=== PATIENT | female | born 1945 | race Asian ===

== ENCOUNTER 2017-06-26 09:34 | Outpatient (CLI) | payer MEDICARE, OTHER ==
[~2017-06-26] VITALS: Ht 152.4 cm; Wt 60.0 kg
[~2017-06-26 09:34] MED LIST: CALCIUM 500500 M1 PO; CENTRUM1 TA1 PO; K-DUR20 MEQ PO; LEVOXYL0.1 MG PO; VITAMIN C500 MG PO; ZYRTEC 10MG10 MG PO
[2017-06-26 09:54] VITALS: BP 186/82; PULSE 62; TEMP 97.7
[2017-06-26 12:20] VITALS: BP 123/76; PULSE 76
[2017-06-26 12:37] VITALS: BP 123/70; PULSE 60; TEMP 98.3
[2017-06-26 13:55] VITALS: BP 114/65; PULSE 65; TEMP 97.6
[2017-06-26 14:40] VITALS: BP 152/94; PULSE 79
[2017-06-26 14:47] VITALS: BP 155/96; PULSE 82
[2017-06-28] MEDS ORDERED: LEVAQUIN 5500 MG/TA1 PO (07:48)
[2017-06-28] MEDS ORDERED: PROTONIX 40MG T40 MG PO (07:48)
[2017-06-28] MEDS ORDERED: ATIVAN 0.50.5 MG/TAB PO (11:50)
== END 2017-06-26 15:05 | disposition home or self-care (01) ==
LOC: EUO 09:34
DX: N39.0 Urinary tract infection, site not specified (principal)
CPT/HCPCS: J1956; J2405

== ENCOUNTER → 2017-07-01 | Outpatient (CLI) | payer MEDICARE, OTHER ==
[~2017-07-01] MED LIST changes: +ATIVAN 0.50.5 MG/TAB PO; +LEVAQUIN 5500 MG/TA1 PO; +PROTONIX 40MG T40 MG PO
== END ==
LOC: COL.RAD 14:53
DX: R51 Headache (principal); R53.1 Weakness

== ENCOUNTER → 2017-08-22 | Outpatient (CLI) | payer MEDICARE, OTHER | LOC: MC.RAD 11:20 | DX: Z12.31 Encounter for screening mammogram for malignant neoplasm of breast (principal); N63.10 Unspecified lump in the right breast, unspecified quadrant ==

== ENCOUNTER → 2017-08-26 | Outpatient (CLI) | payer MEDICARE, OTHER | LOC: MC.RAD 13:24 | DX: N63.10 Unspecified lump in the right breast, unspecified quadrant (principal) ==

== ENCOUNTER → 2017-12-31 | Outpatient (CLI) | payer MEDICARE, OTHER | LOC: COL.RAD 12:13 | DX: D13.4 Benign neoplasm of liver (principal); K76.89 Other specified diseases of liver ==

== ENCOUNTER → 2017-12-31 | Outpatient (CLI) | payer MEDICARE, OTHER | LOC: COL.RAD 07:49 | DX: Z53.8 Procedure and treatment not carried out for other reasons (principal); D13.4 Benign neoplasm of liver ==

== ENCOUNTER → 2018-08-28 | Outpatient (CLI) | payer MEDICARE, OTHER | LOC: COL.RAD 10:50 | DX: K76.89 Other specified diseases of liver (principal); K76.0 Fatty (change of) liver, not elsewhere classified; E27.8 Other specified disorders of adrenal gland; N28.1 Cyst of kidney, acquired; Z90.710 Acquired absence of both cervix and uterus; Z90.49 Acquired absence of other specified parts of digestive tract ==

== ENCOUNTER 2019-07-21 15:34 | Emergency (ER) | payer MEDICARE, OTHER ==
[~2019-07-21] VITALS: Ht 149.9 cm; Wt 60.9 kg
[2019-07-21] MEDS ORDERED: OMNICEF 300MG300 MG PO (17:41)
[2019-07-21] MEDS ORDERED: NORCO 325 MG-51 TAB PO (17:42)
[2019-07-21 20:45] VITALS: BP 122/72; PULSE 80; TEMP 97
== END 2019-07-21 20:50 | disposition home or self-care (01) ==
LOC: COL.ER 15:34
DX: H66.91 Otitis media, unspecified, right ear (principal); Z88.0 Allergy status to penicillin
CPT/HCPCS: J1200; J1630; J2270; J2550

== ENCOUNTER → 2019-08-05 | Outpatient (CLI) | payer MEDICARE, OTHER ==
[~2019-08-05] MED LIST changes: +NORCO 325 MG-51 TAB PO; +OCUFLOX OPHTH DR5 ML OD; +OMNICEF 300MG300 MG PO; +PREDNISONE20 MG PO; +PRILOSEC 20MG20 MG PO; +SYNTHROID0.088 MG/T PO
== END ==
LOC: MC.RAD 16:39
DX: Z12.31 Encounter for screening mammogram for malignant neoplasm of breast (principal); N63.20 Unspecified lump in the left breast, unspecified quadrant

== ENCOUNTER → 2019-08-06 | Outpatient (CLI) | payer MEDICARE, OTHER ==
[~2019-08-06] VITALS: Ht 149.9 cm; Wt 58.8 kg
[2019-08-06 09:22] VITALS: BP 179/109; PULSE 73
--- NOTE | 2019-08-06 09:25 | NUR ---
notified anesthesia of elevated bp 197/114, 194/111, 179/109, 193/[address] to talk with Dr David. Called Dr David off she is not in office will talk with Dr Wright who is adoption agent and let me know.
--- NOTE | 2019-08-06 09:38 | NUR ---
manual bp taken and was a systolic above 190 done by Sarah MOHAN.
[2019-08-06 09:40] VITALS: BP 189/104; PULSE 78
[2019-08-06 10:45] VITALS: BP 169/100; PULSE 81
[2019-08-06 11:00] VITALS: BP 183/110; PULSE 73
[2019-08-06 11:15] VITALS: BP 178/105; PULSE 62
== END ==
LOC: COL.RAD 09:00
DX: Z12.31 Encounter for screening mammogram for malignant neoplasm of breast (principal); N63.20 Unspecified lump in the left breast, unspecified quadrant; G31.9 Degenerative disease of nervous system, unspecified; I67.82 Cerebral ischemia
CPT/HCPCS: J2704

== ENCOUNTER → 2019-08-10 | Outpatient (CLI) | payer MEDICARE, OTHER | LOC: MC.RAD 10:00 | DX: N60.02 Solitary cyst of left breast (principal) ==

== ENCOUNTER → 2019-09-08 | Outpatient (CLI) | payer MEDICARE, OTHER ==
[~2019-09-08] VITALS: Ht 149.9 cm; Wt 54.6 kg
[~2019-09-08] MED LIST changes: +PEPCID 20MG TAB20 MG PO
[2019-09-08 12:30] VITALS: BP 123/77; PULSE 98
[2019-09-08 13:18] VITALS: BP 108/70; PULSE 92
[2019-09-08 13:27] VITALS: BP 107/71; PULSE 86
[2019-09-08 13:37] VITALS: BP 102/68; PULSE 85
--- NOTE | 2019-09-08 14:04 | NUR ---
PT TAKEN TO POV IN WHEELCHAIR. SON ASSISTED INTO CAR.
== END ==
LOC: COL.RAD 11:16
DX: M47.812 Spondylosis without myelopathy or radiculopathy, cervical region (principal); M48.02 Spinal stenosis, cervical region
CPT/HCPCS: J2250; J2704

== ENCOUNTER 2019-09-10 23:33 | Inpatient (IN) | payer MEDICARE, OTHER ==
[~2019-09-10] VITALS: Ht 149.9 cm; Wt 60.2 kg
[2019-09-11] VITALS (21 sets, daily range): BP systolic 100–153; BP diastolic 58–91; PULSE 74–110; TEMP 97.7–99.4
[2019-09-11 01:24] LABS: BASO % 0.2 % (0.0-2.0); EOS # 1.1 (0.0-0.7); EOS % 5.9 % (0-4.0); GRAN # 14.7 (1.4-6.5); GRAN % 81.3 % (42.2-75.2); LYMPH # 1.3 (1.2-3.4); LYMPH % 7.4 % (20.0-51.0); MEAN CELL VOLUME 86 fl (80.0-100.0); MEAN CORPUSCULAR HGB CONC 34 g/dl (33.0-37.0); MEAN PLATELET VOLUME 8.6 fl (7.4-10.4); MONO # 0.8 (0.1-0.6); MONO % 4.3 % (1.7-9.3); PLATELET COUNT 117 K/mm3 (130-400); RED BLOOD COUNT 3.17 M/mm3 (4.10-5.30); REDCELL DISTRIBUTION WIDTH-CV 12.5 % (11.5-14.5)
[2019-09-11 01:30] LABS: HEMATOCRIT 27.4 % (37.0-47.0); HEMOGLOBIN 9.2 g/dl (12.5-16.0); MEAN CORPUSCULAR HEMOGLOBIN 29 pg (27.0-31.0)
[2019-09-11 01:39] LABS: ALBUMIN 2.9 gm/dL (3.5-5.0); BILIRUBIN,TOTAL 0.5 mg/dL (0.0-1.0); CALCIUM 9.2 mg/dL (8.4-10.2); CREATININE, serum 5.92 (0.52-1.25)
[2019-09-11 04:14] LABS: COLLECTION METHOD CLEAN CATCH
[2019-09-11 04:33] LABS: BUDDING YEAST Present /hpf; PH 5 (5-8); SQUAMOUS EPITHELIAL 0-2 /hpf; URINE APPEARANCE Hazy; URINE BACTERIA Occasional /hpf; URINE BILIRUBIN Negative (NEGATIVE); URINE BLOOD 3+ (NEGATIVE); URINE COLOR Yellow; URINE GLUCOSE 1+ (NEGATIVE); URINE KETONE Negative (NEGATIVE); URINE LEUKOCYTE ESTERASE Negative (NEGATIVE); URINE NITRATE Negative (NEGATIVE); URINE PROTEIN(semi-quant) 2+ (NEGATIVE); URINE RBC >50 /hpf; URINE UROBILINOGEN Negative (NEGATIVE)
--- NOTE | 2019-09-11 05:33 | NUR ---
This inspector automatic typewriter received a verbal order from DR Perdue in ED for Rocephin 2g IV. PT and Son educated on new order. Son states that his mother is "very allergic" to "many antibiotics" and that he is not sure which ones or what the reactions are. PT son reports that his sister has the list of allergic antibiotics and the reactions thereof. When this inspector automatic typewriter asks if son can call his sister for the list so treatment can be started the son replies that he does not want to wake his sister up for a few hours d/t her lack of sleep tonight and that he will call sister "in a few hours". PT educated that this list is important to obtain so treatment can be started and that Dr Johnson will also want to be aware of potential allergic reactions. PT son states understanding and replies he will let the nurses know when the list is available. This inspector automatic typewriter contacted Dr Perdue in the ED and updated her on the son's reply.
--- NOTE | 2019-09-11 07:00 | NUR ---
Report received from MARQUES Rosenbaum. Pt had been calling for assistance prior to this time. Assisted pt to the bathroom, son in room essentially lifted pt from behind and carried her to the bathroom. Pt states she does not feel well but denies pain. IVF to LA/C. Will ocntinue to monitor.
--- NOTE | 2019-09-11 08:15 | NUR ---
Assessment charted. Pt resting in bed. Has rash to sides and back that is reddenned and raised. IVF to L A/C. PT is uncomfortable but denies pain. Resting in bed with sons at bedside, tried to answer some questions for the family and discussed awaiting doctors orders for plan. Will continue to monitor.
[2019-09-11 13:18] LABS: INR 1.2 (0.8-3.0); PROTHROMBIN TIME 13.5 SECONDS (9.7-12.8)
[2019-09-11 13:27] LABS: PARTIAL THROMBOPLASTIN TIME 26.7 SECONDS (26.0-37.0)
[2019-09-11 13:31] LABS: URINE PROTEIN:CREAT RATIO 3.79 (0.00-0.14)
--- NOTE | 2019-09-11 14:30 | NUR ---
Pt returned to floor at this time from CT/Radiology. Flat time is 8 hours, will remain flat until 10 pm. Pt aware, but slightly lethargic from ativan and procedure. Denies needs, L side is CDI, purewick catheter in place. Will continue to monitor.
[2019-09-11 18:21] LABS: IRON,SERUM 39 ug/dL (35-150)
[2019-09-11 18:30] LABS: TOTAL IRON BINDING CAPACITY 169 ug/dL (265-497)
--- NOTE | 2019-09-11 18:33 | NUR ---
Pt back from 2nd surgery today, resting in bed, remains on flat time, did have some pain to low back at renal biopsy site today, bandaid remians CDI. PRN pain meds given per request. Pt now resting with loud snoring. Family at bedside. Bladder scan is 300 mls. Will give bedside shift report to nightshift nurse who will resume care.
--- NOTE | 2019-09-12 02:44 | NUR ---
ASSESSMENT COMPLETE. SLEEPING. ROUSES TO VOICE. FAMILY AT BEDSIDE.CONTINUES ON POST PROCEDURE FLAT TIME. LEFT FLANK DRSG CDI. NO S/S RETRO PEROTINEAL PAIN. LEFT TEMPORAL ARTERIAL BIOPSY SITE WITHOUT S/S OF COMPLICATION.
[2019-09-12 03:52] VITALS: BP 118/71; PULSE 80; TEMP 98.2
[2019-09-12 06:30] LABS: MEAN CELL VOLUME 87 fl (80.0-100.0); MEAN CORPUSCULAR HGB CONC 34 g/dl (33.0-37.0); MEAN PLATELET VOLUME 9.7 fl (7.4-10.4); PLATELET COUNT 110 K/mm3 (130-400); RED BLOOD COUNT 2.59 M/mm3 (4.10-5.30); REDCELL DISTRIBUTION WIDTH-CV 13.2 % (11.5-14.5)
[2019-09-12 06:46] LABS: HEMATOCRIT 22.6 % (37.0-47.0); HEMOGLOBIN 7.7 g/dl (12.5-16.0); MEAN CORPUSCULAR HEMOGLOBIN 30 pg (27.0-31.0)
[2019-09-12 06:53] LABS: ALBUMIN 2.5 gm/dL (3.5-5.0); ANION GAP 16 mmol/L (7-16); BLOOD UREA NITROGEN > 120 mg/dL (7-17); CALCIUM 7.4 mg/dL (8.4-10.2); CHLORIDE 108 mmol/L (98-107); GLUCOSE 166 mg/dL (74-106); POTASSIUM 4.1 mmol/L (3.4-5.0); SODIUM 136 mmol/L (137-145)
[2019-09-12 06:55] LABS: CARBON DIOXIDE 12 mmol/L (22-30); PHOSPHOROUS 10.7 mg/dL (2.5-4.5)
--- NOTE | 2019-09-12 07:00 | NUR ---
Bedside shift report received from MARQUES Pierson. pT in bed resting with eyes closed, son asleep at bedside, will continue to monitor.
[2019-09-12 08:40] LABS: ANISOCYTOSIS 1+; LYMPHOCYTE 1 % (20.0-51.0); NEUTROPHILS 99 % (42.0-75.2); PLATELET ESTIMATE DECREASED (NORMAL); TOXIC GRANULATION PRESENT
[2019-09-12 08:41] LABS: HELMET CELLS 1+
--- NOTE | 2019-09-12 09:48 | NUR ---
ASsessment charted. Pt resting in bed with son at bedside. IVF to LA/C. Son states R calf muscle is "softer" than L calf muscle. L flank bandaid biopsy site is CDI. L temporal artery site is well approximated, sutures in tact. Pt denies needs. Will conitnue to monitor.
[2019-09-12 10:28] VITALS: BP 117/71; PULSE 74; TEMP 97.4
[2019-09-12 11:57] LABS: COLLECTION METHOD CLEAN CATCH
[2019-09-12 12:15] VITALS: BP 127/65; PULSE 74; TEMP 97.7
[2019-09-12 12:16] LABS: URINE PROTEIN:CREAT RATIO 1.96 (0.00-0.14)
[2019-09-12 12:27] LABS: PH 5 (5-8); SQUAMOUS EPITHELIAL 0-2 /hpf; URINE APPEARANCE Cloudy; URINE BACTERIA Rare /hpf; URINE BILIRUBIN Negative (NEGATIVE); URINE BLOOD 3+ (NEGATIVE); URINE COLOR Yellow; URINE GLUCOSE 2+ (NEGATIVE); URINE KETONE Negative (NEGATIVE); URINE LEUKOCYTE ESTERASE Trace (NEGATIVE); URINE NITRATE Negative (NEGATIVE); URINE PROTEIN(semi-quant) 2+ (NEGATIVE); URINE RBC >50 /hpf; URINE UROBILINOGEN Negative (NEGATIVE)
[2019-09-12 13:41] LABS: HEPATITIS B SURFACE ANTIGEN Negative (Negative); HEPATITIS C VIRUS ANTIBODY Negative (Negative)
--- NOTE | 2019-09-12 19:09 | NUR ---
Pt has done well today. Resting in chair for much of the afternoon and back to bed. Able to get to the commode and ambulated well. Resting back in bed now. C/o pain and puffiness at IV site, changed to LH per request. Bedside shift report given to MARQUES Eller who will resume care. Fmaily remains at bedside.
[2019-09-12 19:27] VITALS: BP 130/73; PULSE 79; TEMP 97.8
[2019-09-13] VITALS (7 sets, daily range): BP systolic 134–149; BP diastolic 75–82; PULSE 77–88; TEMP 97.4–98.3
--- NOTE | 2019-09-13 02:29 | NUR ---
Patient has rested well throughout the night. States she seems to not be able to keep any food down. Son states that Zofran can tend to make her constipated, and would like to try some crackers. Patient tolerated the crackers and states her stomach feels better. Rash continues to be present throughout abdomen, flank, and back. Requires one assist from staff to utilize the commode. Noted to be very weak with transfers. No bloody sputums noted this shift. Bicarbonate drip continues at 50ml/hr. Continues to be continent of urine. Will continue to monitor.
[2019-09-13 06:45] LABS: MEAN CELL VOLUME 85 fl (80.0-100.0); MEAN CORPUSCULAR HGB CONC 35 g/dl (33.0-37.0); MEAN PLATELET VOLUME 9.5 fl (7.4-10.4); PLATELET COUNT 153 K/mm3 (130-400); REDCELL DISTRIBUTION WIDTH-CV 12.9 % (11.5-14.5)
[2019-09-13 06:49] LABS: HEMATOCRIT 21.3 % (37.0-47.0); HEMOGLOBIN 7.4 g/dl (12.5-16.0); MEAN CORPUSCULAR HEMOGLOBIN 30 pg (27.0-31.0)
[2019-09-13 07:19] LABS: ALBUMIN 2.5 gm/dL (3.5-5.0); CALCIUM 7.1 mg/dL (8.4-10.2); CREATININE, serum 6.7 (0.52-1.25); PHOSPHOROUS 8.9 mg/dL (2.5-4.5); POTASSIUM 3.3 mmol/L (3.4-5.0)
[2019-09-13 07:36] LABS: BAND 6 % (0-10); LYMPHOCYTE 5 % (20.0-51.0); NEUTROPHILS 89 % (42.0-75.2); PLATELET ESTIMATE NORMAL (NORMAL)
--- NOTE | 2019-09-13 08:00 | NUR ---
Patient in bed, Alert and oriented x 3. Son at bedside. Assessment complete. Edema to BLE +1. Encouraged use of SCDs, patient states she has been wearing on and off but does not like them. Medications given per orders to left hand IV. Denies pain a this time. Denies further needs at this time.
--- NOTE | 2019-09-13 11:37 | NUR ---
Initial visit; Patient thanked Shipping Manager for looking in on her and wishing her well.
--- NOTE | 2019-09-13 16:26 | NUR ---
Temperature Control Inspector met with patient and patient's son, Emmanuel (ph#[phone]) to discuss discharge planning. Patient lives in [place] with her son, Emmanuel who provides her with assistance. Patient sees Dr. David for primary care and Emmanuel picks up patient's medications from [facility]. Patient does not own any DME although PT, Sanjay advised patient would benefit from one. Patient has needed assistance with ADLS recently which has been provided by family. Patient does not have Advance Directives and Emmanuel reports he will talk with patient and family about this. ALLA reviewed PT recommendation for post acute rehab vs returning home. Patient became teary eyed and stated she does not want to go to a longterm. Patient and Emmanuel expressed they would be open to Home Health. ALLA provided Medicare.gov list of Home Health agencies and will follow up on patient choice as Emmanuel would like time to discuss with family. ALLA also provided DME Choice form for Emmanuel to review as patient is interested in obtaining a front wheeled walker. ALLA will follow tomorrow on patient's choices.
--- NOTE | 2019-09-13 18:53 | NUR ---
Patient has done well throughout the day. Family at bedside throughout the day. Encouraged patient to increase ambulation, at least to restroom. Denies pain or further needs at this time. Reported off to shift superintendent caustic cresylate.
[2019-09-13 22:27] LABS: HEPATITIS B SURFACE ANTIBODY 4.7 (())
[2019-09-14 03:55] VITALS: BP 154/82; PULSE 80; TEMP 98.2
[2019-09-14 06:51] LABS: MEAN CELL VOLUME 86 fl (80.0-100.0); MEAN CORPUSCULAR HGB CONC 35 g/dl (33.0-37.0); MEAN PLATELET VOLUME 9.9 fl (7.4-10.4); PLATELET COUNT 159 K/mm3 (130-400)
[2019-09-14 06:59] LABS: HEMATOCRIT 21.4 % (37.0-47.0); HEMOGLOBIN 7.5 g/dl (12.5-16.0); MEAN CORPUSCULAR HEMOGLOBIN 30 pg (27.0-31.0)
[2019-09-14 07:11] LABS: ALBUMIN 2.6 gm/dL (3.5-5.0); CALCIUM 6.7 mg/dL (8.4-10.2); CREATININE, serum 6.67 (0.52-1.25); PHOSPHOROUS 8.4 mg/dL (2.5-4.5)
--- NOTE | 2019-09-14 07:52 | NUR ---
Pt transferred to bedside commode as pt requested. sodium bicarb stopped and consent signed. pt taken down to prosthetic lab technician for dialysis catheter placement. Pt stating concerns of "I don't want it to hurt" and pain management and anesthesia was described.
--- NOTE | 2019-09-14 07:59 | NUR ---
ASSESSMENT COMPLETE. RESTING IN BED. SON AT BEDSIDE. DENIES NEEDS AT THIS TIME.
[2019-09-14 08:02] LABS: BAND 3 % (0-10); LYMPHOCYTE 3 % (20.0-51.0); METAMYELOCYTE 1 % (0-0); NEUTROPHILS 89 % (42.0-75.2); PLATELET ESTIMATE NORMAL (NORMAL)
[2019-09-14 08:06] VITALS: BP 154/97; PULSE 112
--- NOTE | 2019-09-14 08:09 | NUR ---
SEE MERGE DOCUMENTATION FOR MEDICATION TIMES AND INTRA/POST PROCEDURE SEDATION ASSESSMENTS.
--- NOTE | 2019-09-14 10:00 | NUR ---
Pt in dialysis. Dialysis nurse called and said that pt has requested pain medication. pt and family Specifically asked for dilaudid. pain medication was administered.
--- NOTE | 2019-09-14 11:53 | NUR ---
Blade Changer called patient's son, Emmanuel to follow up on discussion yesterday about Home Health and obtaining a front wheeled walker. Emmanuel advised they have not made a decision about these items yet but may want to use [facility] for needed DME. ALLA will follow up tomorrow on choices.
[2019-09-14 12:00] VITALS: BP 151/84; PULSE 93; TEMP 97.9
--- NOTE | 2019-09-14 13:47 | NUR ---
Pt nervous about surgery claiming "i don't want to feel pain". Pt stating nausea, no PO meds given. Pt used bedside commode, needed 2 people to transfer. family at bedside no other needs at this time
[2019-09-14 15:15] LABS: C-ANCA 8 U/mL (0-99)
[2019-09-14 17:21] LABS: COLLECTION METHOD CLEAN CATCH
[2019-09-14 17:30] LABS: MUCOUS Present /lpf; PH 5 (5-8); SQUAMOUS EPITHELIAL 0-2 /hpf; URINE APPEARANCE Hazy; URINE BACTERIA None Seen /hpf; URINE BILIRUBIN Negative (NEGATIVE); URINE BLOOD 3+ (NEGATIVE); URINE COLOR Yellow; URINE GLUCOSE 2+ (NEGATIVE); URINE KETONE Negative (NEGATIVE); URINE LEUKOCYTE ESTERASE Negative (NEGATIVE); URINE NITRATE Negative (NEGATIVE); URINE PROTEIN(semi-quant) 2+ (NEGATIVE); URINE RBC >50 /hpf; URINE UROBILINOGEN Negative (NEGATIVE)
[2019-09-14 17:32] VITALS: BP 152/77; PULSE 86; TEMP 98
[2019-09-14 17:45] LABS: URINE PROTEIN:CREAT RATIO 5.11 (0.00-0.14)
--- NOTE | 2019-09-14 20:15 | NUR ---
Initial shift assessment done- denies pain- states its only the nausea,,will give Zofran as ordered, Dialysis catheter to right chest- very small old drainage on dressing that is marked- no increase, son at bedside
[2019-09-14 20:55] VITALS: BP 163/80; PULSE 78; TEMP 98
[2019-09-15 00:05] VITALS: BP 177/84; PULSE 81; TEMP 97.8
--- NOTE | 2019-09-15 00:20 | NUR ---
States cant sleep- family wants something given that will help her sleep-- Ativan 0.5mg given IV at this time, also Hydralazine given for B/P 177/- did sleep for about an hour or so at beginning of shift- has been taking little sips of water, no vomiting
[2019-09-15 05:45] VITALS: BP 142/72; PULSE 83; TEMP 97.7
--- NOTE | 2019-09-15 05:47 | NUR ---
B/P 142/72 after the hydralazine,, was able to sleep for a few hours after the Ativan was given.
[2019-09-15 06:14] LABS: MEAN CELL VOLUME 89 fl (80.0-100.0); MEAN CORPUSCULAR HGB CONC 33 g/dl (33.0-37.0); MEAN PLATELET VOLUME 10.2 fl (7.4-10.4); PLATELET COUNT 149 K/mm3 (130-400); RED BLOOD COUNT 2.75 M/mm3 (4.10-5.30); REDCELL DISTRIBUTION WIDTH-CV 13.4 % (11.5-14.5)
[2019-09-15 06:15] LABS: HEMATOCRIT 24.5 % (37.0-47.0); HEMOGLOBIN 8.1 g/dl (12.5-16.0); MEAN CORPUSCULAR HEMOGLOBIN 29 pg (27.0-31.0)
[2019-09-15 06:30] LABS: ALBUMIN 2.8 gm/dL (3.5-5.0); CALCIUM 7.2 mg/dL (8.4-10.2); CREATININE, serum 5.21 (0.52-1.25); PHOSPHOROUS 7.6 mg/dL (2.5-4.5); POTASSIUM 3.4 mmol/L (3.4-5.0)
--- NOTE | 2019-09-15 07:00 | NUR ---
Bedside shift report received from MARQUES Borden. pT in bed resting with eyes closed, son at bedside resting, will continue to monitor.
[2019-09-15 07:09] VITALS: BP 159/78; PULSE 84; TEMP 98
[2019-09-15 07:40] LABS: BAND 6 % (0-10); LYMPHOCYTE 6 % (20.0-51.0); NEUTROPHILS 85 % (42.0-75.2); NUCLEATED RED BLOOD CELL 2 (0-6); PLATELET ESTIMATE NORMAL (NORMAL)
--- NOTE | 2019-09-15 08:53 | NUR ---
Assessment charted. PT transported down to [facility] room 17 for dialyisis with MARCELLA. Assessment charted. PT resting in bed, felt nauseated last night but denies it now, anxious about dialyssi today. PRN ativan given. HD cath to [facility]. Generalized 1+ edema. Will await return from dialysis.
--- NOTE | 2019-09-15 11:57 | NUR ---
Pt arriveed back to floor with medical staff. Resting in bed with daughter at bedside discussing wishes for eventual planning. Pt is still struggling with nausea and upset stomach, very little intake. Gave am meds per IV and pt wants to try and take synthroid but will wait for a few minutes until meds help stomach. Will conitnue to monitor.
[2019-09-15 12:08] VITALS: BP 138/80; PULSE 90; TEMP 98
--- NOTE | 2019-09-15 14:14 | NUR ---
Vancomycin Initial Dosing Pharmacy Note Ordering provider: Ja Johnson MD Indication/duration: enterococus UTI, 10 days Relevant comorbidities: glomerulonephritis LABS: SCr 5.21, CrCl~7, GFR 8 Recommendation: Will give Vancomycin 1 gm IV x1 after dialysis today. Pharmacy will continue to monitor and dose based on random levels. Loading dose: 1 gram Maintenance dose: dosing based on levels Trough goal: 10-15 ug/mL
[2019-09-15 16:29] VITALS: BP 157/87; PULSE 93; TEMP 97.9
--- NOTE | 2019-09-15 17:50 | NUR ---
Pt resting in bed, sitting up eating some broth. Tolerating well. Family at bedside. Denies needs, PRN anxiety meds given, will give bedside shift report to nightshift nurse who will resume care.
--- NOTE | 2019-09-15 20:00 | NUR ---
Initial shift assessment done- states had a little bit of a better day today- no nausea at this time, Lung sounds clear, family states she did have some soup today - SCD,s on
[2019-09-15 21:26] VITALS: BP 167/94; PULSE 80; TEMP 98
--- NOTE | 2019-09-15 21:30 | NUR ---
States having hip pain from being on the BSC- will give Dilaudid as ordered- was UP to BSC, voided and had soft BM- sent to lab for occult
--- NOTE | 2019-09-15 21:35 | NUR ---
B/P 167/94-- will hold off on prn Hydralazine since pt is in pain at this time- will check after Dilaudid given
[2019-09-16 00:13] VITALS: BP 146/82; PULSE 92
--- NOTE | 2019-09-16 00:30 | NUR ---
Nauseated, small emesis,,Zofran given at this time
--- NOTE | 2019-09-16 04:40 | NUR ---
Awake now- has been resting well tonight so far-- anxious, rubbing her left thigh saying shes in alot of pain "all over", wanting an ice bag, will give Dilaudid IV at this time as ordered, restless, wanting her sone to rub her legs/arms etc- was given some ice chips per request
[2019-09-16 04:50] VITALS: PULSE 90; TEMP 97.7
--- NOTE | 2019-09-16 08:15 | NUR ---
Asseessment completed, alert/oriented, vital signs stable, still very nauseated this morning / reports this went on throughout the night and anytime she gets up and moves around nausea worsens, I have given zofran and Ativan this morning prior to dialysis, will attempt to given PO meds post dialysis tx, heart RRR, lung CTA, son present at bedside, patient denied other needs at this time
--- NOTE | 2019-09-16 08:25 | NUR ---
AB INITIO ETL DEVELOPER's taking patient do dialysis in [facility] 17 by bed at this time
[2019-09-16 08:55] LABS: MEAN CELL VOLUME 92 fl (80.0-100.0); MEAN CORPUSCULAR HGB CONC 33 g/dl (33.0-37.0); MEAN PLATELET VOLUME 9.9 fl (7.4-10.4); PLATELET COUNT 122 K/mm3 (130-400); RED BLOOD COUNT 2.63 M/mm3 (4.10-5.30)
[2019-09-16 09:13] LABS: ALBUMIN 2.8 gm/dL (3.5-5.0); CALCIUM 7.3 mg/dL (8.4-10.2); CREATININE, serum 3.71 (0.52-1.25); PHOSPHOROUS 4.8 mg/dL (2.5-4.5); POTASSIUM 3.2 mmol/L (3.4-5.0)
[2019-09-16 09:19] LABS: HEMATOCRIT 24.2 % (37.0-47.0); HEMOGLOBIN 7.9 g/dl (12.5-16.0); MEAN CORPUSCULAR HEMOGLOBIN 30 pg (27.0-31.0)
[2019-09-16 09:39] LABS: METAMYELOCYTE 2 % (0-0); MYELOCYTE 1 % (0-0); NEUTROPHILS 87 % (42.0-75.2); NUCLEATED RED BLOOD CELL 1 (0-6)
[2019-09-16 09:40] LABS: ANISOCYTOSIS 1+; POLYCHROMASIA 1+
[2019-09-16 09:44] LABS: LYMPHOCYTE 7 % (20.0-51.0)
[2019-09-16 09:46] LABS: SCHISTOCYTES 1+
[2019-09-16 09:48] LABS: PLATELET ESTIMATE NORMAL (NORMAL)
[2019-09-16 12:02] VITALS: BP 160/77; PULSE 82
--- NOTE | 2019-09-16 15:18 | NUR ---
Vancomycin Follow-up Pharmacy Note Current regimen: Vancomycin dosed by levels Vancomycin trough: 17.1 Adjustments: vancomycin 500 mg X1 on 09/16/19. Pt did not complete full dialysis session, reassess for further dosing based on trough before next dialysis.
[2019-09-16 16:12] VITALS: BP 189/84; PULSE 88; TEMP 98.6
--- NOTE | 2019-09-16 16:24 | NUR ---
Admitting Office Escort met with patient and patient's son, Emmanuel to revisit discharge plan. Emmanuel advised they would be willing to obtain walker as long as it's covered by Medicare. ALLA presented and explained DME Choice form and Emmanuel selected [facility] then provided signature. ALLA faxed signed order, Facesheet, History & Physical, and therapy notes to [facility]. ALLA contacted [facility] and shared family's concern about walker being covered by Medicare. Patient's son advised they they are unsure about home health services at this point. SW to continue to follow.
--- NOTE | 2019-09-16 18:31 | NUR ---
Patient given to me from MARQUES Olivera at 1650. Patient has been comfortable since taking her on. Vanc finished, started her fluids @50. Son is currently at the bedside. Nausea is still bothering her. No needs were expressed at this time. Call light is within reach.
[2019-09-16 19:21] VITALS: BP 170/99; PULSE 89; TEMP 97.6
--- NOTE | 2019-09-16 20:00 | NUR ---
Received report from MARQUES Degroot. Assessment complete. c/o generalized pain "all over body" denies any pain meds at this time. request ice pack for left foot discomfort. Pt appears anxious, PRN Ativan administered as requested by pt son, pt was accepting to ativan. meds administered. BP 170/99, PRN hydralzine administered. will monitor BP. Dr Johnson called, updated MD on pt. pt still nauseated only drinking water, protein drink, ice chips. Per MD, orders for clonidine 0.1mg patch now change q1wk, continur prn hydralizine, request dietary consult, PT consult. Orders carried out and explained to pt son,Emmanuel, voices understanding. Pt sonEmmanuel, assist in care of pt. 1-2+ assist with walker to/from restroom, refused to use BSC, states it gave her hip pain when used prior. LH IV intact, dressing changed, CDI, fluids infusing. SCD in place to BLE. HD to Rt chest intact with guaze and tegaderm, no swelling or drainage observed to site. Pt has own heating pad placed on bed for back. Needs met. Call light within reach.
--- NOTE | 2019-09-16 21:00 | NUR ---
Clonidine patch applied to left upper chest.
[2019-09-16 23:27] VITALS: BP 167/96; PULSE 89; TEMP 98
[2019-09-17] VITALS (8 sets, daily range): BP systolic 124–167; BP diastolic 80–102; PULSE 80–87; TEMP 97.8–98.5
--- NOTE | 2019-09-17 03:32 | NUR ---
Pt requesting pain med for back pain. PRn Dilaudid given. Assisted pt to BR using walker, mepilex changed to bottom, small skin tear to left buttocks, no drainage. BP elevated 155/100 LA, 166/100 RA, PRN Hydralazine administered. Will monitor BP. Pt son to inform this nurse of needs for other prn meds. Call light within reach.
--- NOTE | 2019-09-17 06:11 | NUR ---
Attended to pts needs throughout the night with help of son. PRN ativan x1 and dilaudid x1 administered on this shift. Pt son massaged pt back as needed for relief of back pain, ice back given as requested by pt. PRN hydralizine given to elevated BP. SCD in place while laying in bed. Dr Johnson updated on pt status. Son, Emmanuel, remained at pt bedside. Call light within reach.
--- NOTE | 2019-09-17 06:47 | NUR ---
Report given to MARQUES Olivera.
[2019-09-17 06:53] LABS: MEAN CELL VOLUME 94 fl (80.0-100.0); MEAN CORPUSCULAR HGB CONC 31 g/dl (33.0-37.0); MEAN PLATELET VOLUME 10.9 fl (7.4-10.4); PLATELET COUNT 102 K/mm3 (130-400); RED BLOOD COUNT 2.49 M/mm3 (4.10-5.30); REDCELL DISTRIBUTION WIDTH-CV 13.8 % (11.5-14.5)
[2019-09-17 06:57] LABS: ALBUMIN 2.5 gm/dL (3.5-5.0); CALCIUM 6.9 mg/dL (8.4-10.2); CREATININE, serum 2.75 (0.52-1.25); PHOSPHOROUS 4.1 mg/dL (2.5-4.5); POTASSIUM 3.4 mmol/L (3.4-5.0)
[2019-09-17 06:58] LABS: HEMATOCRIT 23.3 % (37.0-47.0); HEMOGLOBIN 7.3 g/dl (12.5-16.0); MEAN CORPUSCULAR HEMOGLOBIN 29 pg (27.0-31.0)
[2019-09-17 08:02] LABS: BAND 3 % (0-10); EOSINOPHIL 1 % (0-4); LYMPHOCYTE 13 % (20.0-51.0); MYELOCYTE 1 % (0-0); NEUTROPHILS 72 % (42.0-75.2); NUCLEATED RED BLOOD CELL 3 (0-6); PLATELET ESTIMATE DECREASED (NORMAL); SCHISTOCYTES 1+
[2019-09-17 08:30] LABS: PATHOLOGY DIFF REVIEW OK +
[2019-09-17 08:36] LABS: METAMYELOCYTE 8 % (0-0); TOXIC GRANULATION PRESENT
--- NOTE | 2019-09-17 10:40 | NUR ---
Assessment completed, alert/oriented, reprorted a little better night last night, less nausea during the night clerk, she got some sleep as wwell, does report feeling nauseated this morning/ I have given Zofran, labs reviewed and plan of care discussed with over the phone this morning, Dietary consult, PT/OT, son present in the room and assisting with cares, heart RRR, lungS CTA, will hold off on dialysis today, will continue to monitor patient
--- NOTE | 2019-09-17 11:09 | NUR ---
Pharmacogeneticist was notified by Felipe at [facility] that a front wheeled walker would be covered by Medicare for patient. ALLA provided this update to son, Emmanuel. ALLA will follow up with [facility] on discharge date.
--- NOTE | 2019-09-17 14:17 | NUR ---
E Commerce Solution Architect was notified by [facility] that they attempted to deliver walker but patient said she would just use the hospital's walker and did not want to do anything without her son present. ALLA spoke with the son, Emmanuel who wants to wait until closer to discharge for the walker to be delivered. Emmanuel states his understanding is that patient will be here through the weekend. SW to continue to follow.
--- NOTE | 2019-09-17 20:00 | NUR ---
Received report from MARQUES Olivera. Assessment complete. Pt son,Emmanuel, at bedside. Denies any pain, discomfort, nausea at this time. Appears to be better today, able to conversate with this RN with eyes open. Meds administered. INT to LH intact, flushed, dressing CDI. Needs met. Call light within reach.
--- NOTE | 2019-09-18 | NUR ---
Pt and pt son c/o being uncomfortable in bed, mattress is uncomfortable per pt even with repositioning. Pt son states that she constantly tossess and turns in bed and is having back ache from hospital bed. Foam mattress requested from surgical unit and placed on pt's bed. Pt satisfied. needs met. Call light within reach.
[2019-09-18 05:36] VITALS: BP 144/77; PULSE 66; TEMP 98.5
--- NOTE | 2019-09-18 06:16 | NUR ---
Needs attended too. Pt states feeling more comfortable with foam mattres in place. Meds administered. Son, Emmanuel, remained at bedside. Pt had some saltine crackers this am without nausea. Call light within reach.
[2019-09-18 06:24] LABS: MEAN CELL VOLUME 94 fl (80.0-100.0); MEAN CORPUSCULAR HGB CONC 33 g/dl (33.0-37.0); MEAN PLATELET VOLUME 9.5 fl (7.4-10.4); PLATELET COUNT 98 K/mm3 (130-400); RED BLOOD COUNT 2.35 M/mm3 (4.10-5.30); REDCELL DISTRIBUTION WIDTH-CV 15.3 % (11.5-14.5)
[2019-09-18 06:25] LABS: HEMATOCRIT 22.1 % (37.0-47.0); HEMOGLOBIN 7.2 g/dl (12.5-16.0); MEAN CORPUSCULAR HEMOGLOBIN 31 pg (27.0-31.0)
[2019-09-18 06:30] LABS: ALBUMIN 2.5 gm/dL (3.5-5.0); CALCIUM 6.8 mg/dL (8.4-10.2); CREATININE, serum 3.51 (0.52-1.25); PHOSPHOROUS 3.6 mg/dL (2.5-4.5); POTASSIUM 3.2 mmol/L (3.4-5.0)
--- NOTE | 2019-09-18 07:06 | NUR ---
Report given to MARQUES Degroot.
[2019-09-18 08:22] VITALS: BP 141/79; PULSE 78; TEMP 98.4
[2019-09-18 08:24] LABS: TB GOLD INTERPRETATION Indeterminate (Negative)
--- NOTE | 2019-09-18 08:50 | NUR ---
Assessment complete. Patient lying in bed on entry. Up to restroom with gaitbelt and walker. Small soft bowel movement. Patient states she is tired but has no complained of nausea. IV site CD&I, flushed well. No complaints of pain other than IV site but slow push prevents pain. Pts son assisted with morning care. Pt and family are aware of POC and dialysis today. No further needs were expressed at this time. Call light is within reach.
[2019-09-18 09:58] LABS: HYPOCHROMIA 1+; LYMPHOCYTE 5 % (20.0-51.0); NEUTROPHILS 93 % (42.0-75.2); PLATELET ESTIMATE NORMAL (NORMAL)
[2019-09-18 11:58] VITALS: BP 141/84; PULSE 78; TEMP 98.9
--- NOTE | 2019-09-18 12:44 | NUR ---
Patient down to dialysis at this time. Lunch tray was taken with her. Son accompanied her as well.
--- NOTE | 2019-09-18 16:30 | NUR ---
Pt arrived back from dialysis at this time. States she is feeling hungry and wanted soup. Soup provided for pt.
--- NOTE | 2019-09-18 17:56 | NUR ---
Pt has had a better day today. She had multiple visitors and went to dialysis today 600 ml of fluid off. When arriving back she stated she was hungry and wanted soup. Chicken noodle soup was provided. No complaints of pain or nausea all day. Per Dr. Johnson now that we have the quantiferon gold test results back and they are indeterminate he is going to consult Dr. Humphrey and go from there. Pts son was with her all day. No further needs were expressed from the patient at this time. Call light is within reach.
--- NOTE | 2019-09-18 19:15 | NUR ---
Received report from Mikayla. Seen patient awake, sitting on bed. Female friend/relative was at the bedside as well. With INT on left hand. Dilaysis catheter on right chest is clean, dry and intact. Patient denies any pain.
[2019-09-18 21:08] VITALS: BP 112/65; PULSE 79; TEMP 98.6
[2019-09-18 23:39] VITALS: BP 124/71; PULSE 76; TEMP 97.7
[2019-09-19] VITALS (17 sets, daily range): BP systolic 100–145; BP diastolic 52–73; PULSE 61–76; TEMP 97.2–98.6
--- NOTE | 2019-09-19 07:34 | NUR ---
Assessment complete. Patient sitting up in bed. She requested nausea medications from the aid, I provided this to her. She was up to the restroom with me and the help of her son. Walked well with her walker. She was snacking on some saltines when I came in. Patient seems less weak today. IV site CD&I, flushed well. No complaints of pain or discomfort. Very minimal swelling in her lower extremities. Son continues to stay at bedside. No further needs were expressed at this time. Call light is within reach.
[2019-09-19 08:21] LABS: MEAN CELL VOLUME 96 fl (80.0-100.0); MEAN CORPUSCULAR HGB CONC 32 g/dl (33.0-37.0); MEAN PLATELET VOLUME 10.2 fl (7.4-10.4); PLATELET COUNT 83 K/mm3 (130-400); RED BLOOD COUNT 2.17 M/mm3 (4.10-5.30); REDCELL DISTRIBUTION WIDTH-CV 17.1 % (11.5-14.5)
[2019-09-19 08:31] LABS: ALBUMIN 2.2 gm/dL (3.5-5.0); CALCIUM 6.9 mg/dL (8.4-10.2); CREATININE, serum 2.34 (0.52-1.25); PHOSPHOROUS 2.8 mg/dL (2.5-4.5); POTASSIUM 3.1 mmol/L (3.4-5.0)
[2019-09-19 09:20] LABS: HEMATOCRIT 20.9 % (37.0-47.0); HEMOGLOBIN 6.6 g/dl (12.5-16.0); MEAN CORPUSCULAR HEMOGLOBIN 30 pg (27.0-31.0)
[2019-09-19 10:48] LABS: BAND 3 % (0-10); EOSINOPHIL 1 % (0-4); LYMPHOCYTE 9 % (20.0-51.0); METAMYELOCYTE 3 % (0-0); NEUTROPHILS 81 % (42.0-75.2); NUCLEATED RED BLOOD CELL 1 (0-6)
[2019-09-19 10:49] LABS: ANISOCYTOSIS 1+; PLATELET ESTIMATE NORMAL (NORMAL)
--- NOTE | 2019-09-19 14:14 | NUR ---
Blood transfusion started at this time.
--- NOTE | 2019-09-19 14:29 | NUR ---
Patient is tolerating blood well. Napping during infusion at this time. Vitals are being monitored.
--- NOTE | 2019-09-19 15:16 | NUR ---
Rate of infusion increased to 120 ml at this time. Pt is tolerating well.
[2019-09-19 16:31] LABS: MEAN CELL VOLUME 95 fl (80.0-100.0); MEAN CORPUSCULAR HGB CONC 31 g/dl (33.0-37.0); MEAN PLATELET VOLUME 10.1 fl (7.4-10.4); PLATELET COUNT 82 K/mm3 (130-400); RED BLOOD COUNT 2.61 M/mm3 (4.10-5.30); REDCELL DISTRIBUTION WIDTH-CV 17.4 % (11.5-14.5)
[2019-09-19 16:34] LABS: HEMATOCRIT 24.9 % (37.0-47.0); HEMOGLOBIN 7.8 g/dl (12.5-16.0); MEAN CORPUSCULAR HEMOGLOBIN 30 pg (27.0-31.0)
[2019-09-19 16:50] LABS: ANISOCYTOSIS 3+; LYMPHOCYTE 2 % (20.0-51.0); NEUTROPHILS 97 % (42.0-75.2)
--- NOTE | 2019-09-19 17:39 | NUR ---
First unit of blood complete. Second unit started at this time. Patient is currently sitting up eating dinner.
--- NOTE | 2019-09-19 17:49 | NUR ---
Second unit now infusing at 120ml/hr. Patient is tolerating well. Monitoring vitals Q15min at this time.
--- NOTE | 2019-09-19 18:10 | NUR ---
Patient had a good day. She has been able to eat small bits of things through out the day with no nausea. She had some nausea very early this morning but I had no issues throughout the day. No complaints of pain. She gets a little bit uncomfortable but repositioning usually helps. She was up to her chair for breakfast and lunch, ambulated well with support. Overall patient is far more talkative and seems to be feeling better. Second unit of blood is still currently infusing at this time at 120 ml/hr patient has been tolerating very well. No further needs expressed at this time. call light is in reach.
--- NOTE | 2019-09-19 18:10 | NUR ---
Patient only took a few bites of salad for dinner and ate the ice cream. She did not like the food. I offered her some tomato soup and she said maybe later but not at the moment.
[2019-09-20 03:02] VITALS: BP 151/79; PULSE 65; TEMP 98.6
[2019-09-20 08:03] VITALS: BP 145/83; PULSE 64; TEMP 98.2
[2019-09-20 10:10] LABS: BASO % 0.1 % (0.0-2.0); EOS # 0.1 (0.0-0.7); EOS % 1.2 % (0-4.0); GRAN # 9.3 (1.4-6.5); GRAN % 82.6 % (42.2-75.2); LYMPH # 0.9 (1.2-3.4); LYMPH % 7.7 % (20.0-51.0); MEAN CELL VOLUME 91 fl (80.0-100.0); MEAN CORPUSCULAR HGB CONC 33 g/dl (33.0-37.0); MEAN PLATELET VOLUME 9.5 fl (7.4-10.4); MONO # 0.7 (0.1-0.6); MONO % 5.9 % (1.7-9.3); PLATELET COUNT 64 K/mm3 (130-400); RED BLOOD COUNT 3.41 M/mm3 (4.10-5.30); REDCELL DISTRIBUTION WIDTH-CV 18.4 % (11.5-14.5)
[2019-09-20 10:13] LABS: HEMATOCRIT 31.1 % (37.0-47.0); HEMOGLOBIN 10.2 g/dl (12.5-16.0); MEAN CORPUSCULAR HEMOGLOBIN 30 pg (27.0-31.0)
[2019-09-20 10:18] LABS: ALBUMIN 2.3 gm/dL (3.5-5.0); CALCIUM 6.8 mg/dL (8.4-10.2); CREATININE, serum 3.4 (0.52-1.25); PHOSPHOROUS 3.7 mg/dL (2.5-4.5); POTASSIUM 3.1 mmol/L (3.4-5.0)
--- NOTE | 2019-09-20 10:35 | NUR ---
Assessment complete. Patient sitting in bed. States she ate some of her oat meal this morning. She had a hard time swallowing the PO prednisone and did not really want to but she managed to get it down. IV site CD&I. No complaints of pain or discomfort reported. No nausea this morning. No further needs were expressed at this time. Call light is within reach.
--- NOTE | 2019-09-20 10:39 | NUR ---
Per Destiny TIJERINA, T-spot test was to be collected early this morning. At first try lab informed me that this was not a test done here. I clarified again that this should be a blood test that gets sent out. They called me again and gave me instrctions to put in different orders. There was still discrepency. Theresa got involved in order to clarify exactly how this needed to be done. Sample was collected by Theresa and Hallie and was properly handled in order to be sent out for testing. Patient is aware of why this was drawn, Son was also present.
--- NOTE | 2019-09-20 11:18 | NUR ---
10:30 Fox Moon RN and Shanelle Nova RN in patient room to obtain blood specimen to submit for TSpot testing as requested by Nephrology. Blood drawn from Rt. arm and hand. Specimen kit assembled and kit transported to [facility] for shipping by [employer]. Fox Hernandez notified blood draw completed. Shanelle Nova RN
[2019-09-20 12:08] VITALS: BP 142/76; PULSE 66; TEMP 98.5
[2019-09-20 17:33] VITALS: BP 137/76; PULSE 64; TEMP 98.1
--- NOTE | 2019-09-20 18:01 | NUR ---
Patient had a good day. She had multiple friends here to visit and seemed to be in very good spirits. She ate some Czech rice for lunch and has been drinking a sweet occitan drink with her friends as well. Her blood sugar was 245 before dinner, had to give her 2 units of insulin. She has been up in the recliner for the second half of the day. New IV placed by MARQUES Giraldo as her old one was 7 days old. Patient is aware of her procedure tomorrow. Her son signs the consents for her and he has not been here since this morning. Will report to maintenance technician 3rd shift that when he comes in for the evening he needs to sign the consent for her EGD. No further needs at this time. Call light is in reach.
--- NOTE | 2019-09-20 19:45 | NUR ---
ASSESSMENT COMPLETE. UP IN CHAIR. AMBULATED IN [place] WITH WALKER, 1 STANDBY ASSIST @ 50 FEET. C/O LOW BACK PAIN REQUESTS ICE PACK, PROVIDED. REFI=USED ACETAMINOPHEN. DENIES OTHER NEEDS AT THIS TIME.
[2019-09-20 20:32] VITALS: BP 141/66; PULSE 60; TEMP 97.8
[2019-09-20 23:30] VITALS: BP 141/70; PULSE 62; TEMP 98.1
[2019-09-21 03:35] VITALS: BP 151/69; PULSE 57; TEMP 98.4
[2019-09-21 06:16] LABS: MEAN CELL VOLUME 92 fl (80.0-100.0); MEAN CORPUSCULAR HGB CONC 33 g/dl (33.0-37.0); MEAN PLATELET VOLUME 10.4 fl (7.4-10.4); PLATELET COUNT 69 K/mm3 (130-400); RED BLOOD COUNT 3.27 M/mm3 (4.10-5.30); REDCELL DISTRIBUTION WIDTH-CV 18.1 % (11.5-14.5)
[2019-09-21 06:24] LABS: HEMATOCRIT 30.2 % (37.0-47.0); HEMOGLOBIN 9.8 g/dl (12.5-16.0); MEAN CORPUSCULAR HEMOGLOBIN 30 pg (27.0-31.0)
[2019-09-21 06:42] LABS: ALBUMIN 2.3 gm/dL (3.5-5.0); CALCIUM 6.7 mg/dL (8.4-10.2); CREATININE, serum 3.78 (0.52-1.25); PHOSPHOROUS 4.3 mg/dL (2.5-4.5); POTASSIUM 3.4 mmol/L (3.4-5.0)
[2019-09-21 07:34] LABS: LYMPHOCYTE 10 % (20.0-51.0); NEUTROPHILS 86 % (42.0-75.2); PLATELET ESTIMATE DECREASED (NORMAL)
[2019-09-21 07:35] LABS: ANISOCYTOSIS 1+; HYPOCHROMIA 1+
[2019-09-21 07:36] LABS: HELMET CELLS 1+; SCHISTOCYTES 1+
[2019-09-21 07:41] VITALS: BP 177/91; PULSE 69; TEMP 98.6
--- NOTE | 2019-09-21 08:11 | NUR ---
Transported patient by bed to dialysis in room IMCU 18 at this time, son present in the room, discussed plan of care for today
[2019-09-21 11:28] VITALS: BP 121/63; PULSE 81; TEMP 98.5
[2019-09-21 21:14] VITALS: BP 177/75; PULSE 75; TEMP 98.5
[2019-09-22] VITALS (13 sets, daily range): BP systolic 109–167; BP diastolic 20–87; PULSE 65–85; TEMP 97.8–99.5
--- NOTE | 2019-09-22 03:09 | NUR ---
Pt was sleeping, have continued hourly to check on pt's go-litely, Pt having a difficult time drinking it. Encouraged every 10 minutes drinking, then every 5 minutes. Pt stated she's too tired to drink more. Pt's son is in the room and also denied her drinking.
--- NOTE | 2019-09-22 05:57 | NUR ---
At 0225 Pt still declined drinking. Drank some of go-lytely up to this point, but not near enough. Pt bowel movements are not clear liquid. Pt and son stated it was too exhausting for her and said they would pick it back up in the morning. It is now 0556 and pt has not drank any more of the bowel prep.
[2019-09-22 06:27] LABS: BASO % 0.1 % (0.0-2.0); EOS # 0.2 (0.0-0.7); EOS % 1.8 % (0-4.0); GRAN # 7.7 (1.4-6.5); GRAN % 84.1 % (42.2-75.2); HEMOGLOBIN 10.4 g/dl (12.5-16.0); LYMPH # 0.6 (1.2-3.4); LYMPH % 6.5 % (20.0-51.0); MEAN CELL VOLUME 93 fl (80.0-100.0); MEAN CORPUSCULAR HEMOGLOBIN 30 pg (27.0-31.0); MEAN CORPUSCULAR HGB CONC 32 g/dl (33.0-37.0); MEAN PLATELET VOLUME 10.3 fl (7.4-10.4); MONO # 0.6 (0.1-0.6); MONO % 6.5 % (1.7-9.3); PLATELET COUNT 54 K/mm3 (130-400); REDCELL DISTRIBUTION WIDTH-CV 18.4 % (11.5-14.5)
[2019-09-22 06:29] LABS: INR 1.1 (0.8-3.0); PROTHROMBIN TIME 12.5 SECONDS (9.7-12.8)
[2019-09-22 06:32] LABS: PARTIAL THROMBOPLASTIN TIME 28.8 SECONDS (26.0-37.0)
[2019-09-22 06:33] LABS: HEMATOCRIT 32.5 % (37.0-47.0)
[2019-09-22 06:36] LABS: RETIC % 6.1 % (0.5-3.52)
[2019-09-22 06:46] LABS: BILIRUBIN,TOTAL 1.4 mg/dL (0.0-1.0)
--- NOTE | 2019-09-22 08:12 | NUR ---
Assessment complete. Patient sitting up in bed, son at the bedside. She is alert and oriented. Currently drinking bowel prep solution. Patient and son are aware of her plan of care at this time. IV site CD&I. Pt continues to struggle with PO medications. No pain or discomfort reported. Fall precautions are in place. No further needs were expressed at this time. Call light is within reach.
--- NOTE | 2019-09-22 13:28 | NUR ---
Pt down to colonoscopy at this time. Fluids started, family notified.
--- NOTE | 2019-09-22 15:13 | NUR ---
Patient arrived to floor, alert but sleepy. She is now awake and alert. Family and friends at bedside at this time feeding her soup. Patient states she is not in any pain right now. IV site changed to Left hand in endoscopy, they stated that the other came out some how. Vitals are being monitored. No further needs at this time. Call light is in reach.
--- NOTE | 2019-09-22 15:53 | NUR ---
Phone report received re: results of [facility] IGRA testing. Lab report specifies test is negative. Paper report to be faxed to Medical Unit to be part of permanent record. Phone report called to Dr. Humphrey. Feliberto RN
--- NOTE | 2019-09-22 17:17 | NUR ---
Pt had a good day. Colonoscopy was delayed due to her continuing to drink her Golytle after 0830 this morning. Pts son and family has been present all day. Pts has a new sore on her gluteal area, right cheek. 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 I did inform Dr. Humphrey of this as he called me shortly after. He requested the photo taken of it during her colonoscopy, María was able to scan it to him. He recieved the picture and prescribed asyclovir for pt. Patient is aware of this. I applied a mepilex to the sore. She came out of procedure well, VS stable. No futher needs were expressed at this time. Call light is in reach.
--- NOTE | 2019-09-22 20:00 | NUR ---
Received report from MARQUES Degroot. Assessment complete. Alert and oriented. Denies any pain or discomfort at this time. Denies nausea. Son,Emmanuel, at bedside. Meds administered. Needs met. INT to LH intact, flushed, dressing CDI. Mepilex in place to left buttocks. Son assist in care of pt, ambulates using walker. Call light within reach.
[2019-09-23] VITALS (7 sets, daily range): BP systolic 116–160; BP diastolic 65–80; PULSE 66–81; TEMP 97.3–99
--- NOTE | 2019-09-23 06:09 | NUR ---
Pt made no complaints during the night. Meds administered. needs met. Call light within reach. Son at bedside.
--- NOTE | 2019-09-23 07:16 | NUR ---
Report given to MARQUES Arango.
[2019-09-23 08:49] LABS: BASO % 0.1 % (0.0-2.0); EOS % 0.5 % (0-4.0); GRAN # 6.9 (1.4-6.5); GRAN % 81.1 % (42.2-75.2); HEMOGLOBIN 10.1 g/dl (12.5-16.0); LYMPH # 0.8 (1.2-3.4); MEAN CELL VOLUME 92 fl (80.0-100.0); MEAN CORPUSCULAR HEMOGLOBIN 30 pg (27.0-31.0); MEAN CORPUSCULAR HGB CONC 33 g/dl (33.0-37.0); MEAN PLATELET VOLUME 9.7 fl (7.4-10.4); MONO # 0.7 (0.1-0.6); MONO % 7.7 % (1.7-9.3); PLATELET COUNT 56 K/mm3 (130-400); RED BLOOD COUNT 3.35 M/mm3 (4.10-5.30); REDCELL DISTRIBUTION WIDTH-CV 18.2 % (11.5-14.5)
[2019-09-23 08:52] LABS: CALCIUM 6.8 mg/dL (8.4-10.2); CREATININE, serum 3.03 (0.52-1.25); HEMATOCRIT 30.9 % (37.0-47.0)
[2019-09-23 08:58] LABS: POTASSIUM 2.9 mmol/L (3.4-5.0)
--- NOTE | 2019-09-23 13:52 | NUR ---
Primary nurse was assisted with [id number] patient care by [employer] AD[employer] student Farooq Sorensen and [employer] instructor Tracee Salomon RN-.
--- NOTE | 2019-09-23 17:28 | NUR ---
Security Monitor spoke with patient's son, Emmanuel to follow up on front wheeled walker and home health. Emmanuel advised he would prefer the walker not be delivered but stated either he or his sister, Ligia could pickling solution maker the walker. Emmanuel stated they had not made any decision on home health at this time. ALLA contacted Ligia (ph#[phone]) who reports patient has a walker at home that belonged to another family member so she wasn't sure if they wanted to obtain a walker through Medicare as they may need a wheelchair at some point. Ligia also confirmed they had not made a decision on home health services. ALLA will continue to follow on patient and family preferences and discharge planning.
--- NOTE | 2019-09-23 20:45 | NUR ---
Resting in bed with son at bedside. Assessment complete. Bases bilaterally coarse, upper lobe dimished. Denies shortness of breath. Heart sounds normal. Bowels active x4. Pulses strong throughout. No edema noted. INT left hand without complications. Right chest dialysis access. Left chest catapres patch in place. Right forearm bruising present. Left buttock report ulcer-mepilex in place. Denies pain. Repositioned at this time. Denies needs. Call light in reach.
--- NOTE | 2019-09-23 23:52 | NUR ---
Resting in bed with son at bedside. Denies needs. Call light in reach.
--- NOTE | 2019-09-24 02:00 | NUR ---
Resting in bed. denies needs. call light in reach.
[2019-09-24 03:51] VITALS: BP 138/75; PULSE 74; TEMP 98.5
--- NOTE | 2019-09-24 06:21 | NUR ---
Patient had uneventful night. Son remained at bedside throughout night. Resting in bed this AM. Call light in reach.
--- NOTE | 2019-09-24 06:59 | NUR ---
Report given to MARQUES Giraldo
--- NOTE | 2019-09-24 07:00 | NUR ---
Bedside shift report received from MARQUES Lane. PT in bed resting, feeling well, looks much better than previous visits with me, deneis needs, pain or nausea, will contnue to saad.
[2019-09-24 07:49] VITALS: BP 146/79; PULSE 69; TEMP 98
--- NOTE | 2019-09-24 09:00 | NUR ---
Assessment charted. Pt in chair at side of bed resting with breakfast in front of her. Denies needs, feeling much better. Resting quietly, student nurse providing care. Will continue to maxine.
--- NOTE | 2019-09-24 10:02 | NUR ---
Initial visit; Patient thanked High School Foreign Language Tutor for looking in on her and offering God's blessings.
[2019-09-24 11:56] VITALS: BP 135/69; PULSE 59; TEMP 98
--- NOTE | 2019-09-24 13:50 | NUR ---
Primary nurse was assisted with [phone] patient care by [employer] AD[employer] student Farooq Sorensen and [facility] instructor Tracee Salomon RN-BC.
[2019-09-24 15:17] VITALS: BP 126/69; PULSE 71; TEMP 97.8
--- NOTE | 2019-09-24 17:28 | NUR ---
Pt resting in chair at side of bed. continues to have good appetite, eating food from home. Denies pain or nausea. Will give bedside shift report to nightshift nurse who will resume care.
[2019-09-24 18:31] LABS: ALBUMIN 2.6 gm/dL (3.5-5.0); CALCIUM 6.9 mg/dL (8.4-10.2); CREATININE, serum 2.9 (0.52-1.25); PHOSPHOROUS 3.6 mg/dL (2.5-4.5); POTASSIUM 3.7 mmol/L (3.4-5.0)
[2019-09-24 18:50] LABS: URINE CREATININE CLEARANCE 10.8 mL/min (88-128); URINE TOTAL VOLUME 550 mL
[2019-09-24 20:30] VITALS: BP 140/70; PULSE 66; TEMP 97.5
--- NOTE | 2019-09-24 20:30 | NUR ---
Resting in bed. Assessment complete. Bases bilaterally diminished otherwise clear. Heart sounds normal. Bowels active x4. Pulses present throughout. Bilateral lower leg edema +2. Reports back pain "from sitting in chair all day." Was assisted into bed. Patient has heating pad on. Son at bedside. Denies other needs at this time. Call light in reach.
[2019-09-25] VITALS (7 sets, daily range): BP systolic 103–140; BP diastolic 61–77; PULSE 59–76; TEMP 97.7–99.2
--- NOTE | 2019-09-25 00:54 | NUR ---
Up to restroom and returned to bed. Denies needs. Son at bedside. Call light in reach.
--- NOTE | 2019-09-25 06:30 | NUR ---
Patient had uneventful night. Resting in bed this AM with son at bedside. Call light in reach.
--- NOTE | 2019-09-25 07:02 | NUR ---
Report given to MARQUES Schrader
[2019-09-25 10:18] LABS: BASO % 0.5 % (0.0-2.0); EOS % 0.2 % (0-4.0); GRAN # 6.9 (1.4-6.5); GRAN % 78.9 % (42.2-75.2); LYMPH # 0.9 (1.2-3.4); MEAN CELL VOLUME 94 fl (80.0-100.0); MEAN CORPUSCULAR HGB CONC 32 g/dl (33.0-37.0); MEAN PLATELET VOLUME 8.9 fl (7.4-10.4); MONO # 0.9 (0.1-0.6); MONO % 9.9 % (1.7-9.3); PLATELET COUNT 77 K/mm3 (130-400); RED BLOOD COUNT 3.33 M/mm3 (4.10-5.30); REDCELL DISTRIBUTION WIDTH-CV 17.6 % (11.5-14.5)
[2019-09-25 10:20] LABS: HEMATOCRIT 31.2 % (37.0-47.0); HEMOGLOBIN 9.9 g/dl (12.5-16.0); MEAN CORPUSCULAR HEMOGLOBIN 30 pg (27.0-31.0)
[2019-09-25 10:37] LABS: ALBUMIN 2.5 gm/dL (3.5-5.0); C-REACTIVE PROTEIN 1.8 mg/dL (0.0-0.9); CALCIUM 6.9 mg/dL (8.4-10.2); CREATININE, serum 3.27 (0.52-1.25); PHOSPHOROUS 3.3 mg/dL (2.5-4.5)
[2019-09-25 11:15] LABS: ERYTHROCYTE SEDIMENTATION RATE 7 mm/hr (0-30)
[2019-09-25 14:20] LABS: A/G RATIO (PEP) 0.88 (()); BETA GLOBULINS (PEP) 0.7 g/dL (0.7-1.2)
--- NOTE | 2019-09-25 18:55 | NUR ---
Patient went for dialysis. denied any pain. Patient is alert and oriented and resting in chair.
--- NOTE | 2019-09-25 20:45 | NUR ---
Resting in bed with son at bedside. Assessment complete. Left lungs diminshed, right lung clear. Heart sounds normal. Bowels active x4. Pulses present throughout. Bilateral lower leg edema +1 present. Denies pain. Denies needs at this time. BP systolic 103 on recheck 114. Given schedule zestril 5mg as ordered. Call light in reach.
--- NOTE | 2019-09-26 00:18 | NUR ---
Resting in bed with son at bedside. Call light in reach.
[2019-09-26 04:05] VITALS: BP 134/74; PULSE 65; TEMP 98
--- NOTE | 2019-09-26 06:00 | NUR ---
Patient had uneventful night. Son remained at bedside throughout night. Up to restroom and returned to bed this AM. Call light in reach.
--- NOTE | 2019-09-26 06:53 | NUR ---
Report given to MARQUES Schrader
[2019-09-26 07:40] VITALS: BP 139/76; PULSE 63; TEMP 98.4
--- NOTE | 2019-09-26 09:16 | NUR ---
Pt assessment complete. Pt is ambulating back from restroom at this time. Her gait is even and steady with use of walker. She is A/O x4. Her breathing is even and unlabored on RA. Pt denies SOB. Intermittent pain to bottom, pt positioned in the chair with pillow under buttock. Pt denies N/V. No needs at this time. Call light within reach.
[2019-09-26 09:34] LABS: BASO % 0.1 % (0.0-2.0); EOS % 0.1 % (0-4.0); GRAN # 5.4 (1.4-6.5); GRAN % 78.2 % (42.2-75.2); HEMATOCRIT 28.5 % (37.0-47.0); HEMOGLOBIN 9.2 g/dl (12.5-16.0); LYMPH # 0.8 (1.2-3.4); LYMPH % 11.4 % (20.0-51.0); MEAN CELL VOLUME 93 fl (80.0-100.0); MEAN CORPUSCULAR HEMOGLOBIN 30 pg (27.0-31.0); MEAN CORPUSCULAR HGB CONC 32 g/dl (33.0-37.0); MONO # 0.7 (0.1-0.6); MONO % 9.8 % (1.7-9.3); PLATELET COUNT 83 K/mm3 (130-400); RED BLOOD COUNT 3.05 M/mm3 (4.10-5.30); REDCELL DISTRIBUTION WIDTH-CV 17.2 % (11.5-14.5)
[2019-09-26 09:47] LABS: ALBUMIN 2.3 gm/dL (3.5-5.0); CREATININE, serum 2.31 (0.52-1.25); POTASSIUM 3.2 mmol/L (3.4-5.0)
--- NOTE | 2019-09-26 11:00 | NUR ---
Pt feeling weak and reporting back pain while walking with PT, PRN Tylenol administered. Pt assisted back to bed.
[2019-09-26 12:23] VITALS: BP 115/61; PULSE 65; TEMP 98.3
[2019-09-26 16:04] VITALS: BP 118/69; PULSE 62; TEMP 97.9
[2019-09-26 20:11] VITALS: BP 120/69; PULSE 59; TEMP 97.8
--- NOTE | 2019-09-26 20:45 | NUR ---
Shift assessment complete. Pt resting in bed, awake, a&o, cooperative c cares. Pt denies pain or other c/o at this time. INT patent. HD cath noted to chest s complication. Pt s needs. Call light in reach, will continue to monitor.
[2019-09-26 23:29] VITALS: BP 143/80; PULSE 61; TEMP 97.8
[2019-09-27] VITALS (7 sets, daily range): BP systolic 124–172; BP diastolic 67–82; PULSE 65–75; TEMP 97.8–99.4
[2019-09-27 09:09] LABS: BASO % 0.3 % (0.0-2.0); EOS % 0.1 % (0-4.0); GRAN # 5.5 (1.4-6.5); GRAN % 73.9 % (42.2-75.2); LYMPH # 1.2 (1.2-3.4); MEAN CELL VOLUME 94 fl (80.0-100.0); MEAN CORPUSCULAR HGB CONC 32 g/dl (33.0-37.0); MONO # 0.7 (0.1-0.6); MONO % 9.2 % (1.7-9.3); PLATELET COUNT 70 K/mm3 (130-400); RED BLOOD COUNT 3.26 M/mm3 (4.10-5.30); REDCELL DISTRIBUTION WIDTH-CV 16.9 % (11.5-14.5)
[2019-09-27 09:10] LABS: HEMATOCRIT 30.6 % (37.0-47.0); HEMOGLOBIN 9.9 g/dl (12.5-16.0); MEAN CORPUSCULAR HEMOGLOBIN 30 pg (27.0-31.0)
[2019-09-27 09:19] LABS: ALBUMIN 2.6 gm/dL (3.5-5.0); CALCIUM 7.2 mg/dL (8.4-10.2); CREATININE, serum 2.96 (0.52-1.25); PHOSPHOROUS 3.9 mg/dL (2.5-4.5); POTASSIUM 3.2 mmol/L (3.4-5.0)
--- NOTE | 2019-09-27 10:33 | NUR ---
Pt's labs were called to Dr Johnson at 0930 when they became available. He ordered that IV fluid not be given as previously ordered and that zofran and cytoxan be given as ordered. I spoke with patient at bedside prior to giving her the zofran. i reviewed procedure, side effects that may occur, and precautions. She also requested that I review this with her son when he arrives and that I have him sign the consent. Pt requires much support but seems quite accepting of chemotherapy as she has discussed with Dr Johnson.
--- NOTE | 2019-09-27 10:55 | NUR ---
Patient is alert and oriented, complain of pain on left shoulder. Blood pressure was 170/77. with a recheck the BP was still high. Hydralazine was administered. rechecked vitals it was 164/88. Patient is resting in bed. Son is at bedside visiting.
--- NOTE | 2019-09-27 12:12 | NUR ---
Pt tolerating infusing without complications, Linda Persaud at bedside. Will continue to monitor.
--- NOTE | 2019-09-27 13:04 | NUR ---
Pt and son given chemotherapy instructions and printed information. Procedure was reviewed with them. Son was very reluctant to start cytoxan with out first talking more with Dr Johnson. Mable Funez RN was also contacted and also visited with the son and patient. We were finally told by the son and patient to proceed with the cytoxan and they would discuss more with Dr Johnson when he rounds this evening. Both son and patient signed the consent for chemotherapy. Chemotherapy drug was verified correct with Macrina Betts RN by comparing printed label with written orders. Wearing appropriate chemotherapy PPE, cytoxan was started and infused over 1 hour. Pt tolerated well. Precautions are in place with signage at the door. I am told Dr Johnson did call to check on pt. She is preparing to eat lunch.
--- NOTE | 2019-09-27 14:21 | NUR ---
Pt appears to be sleeping at this time. No family is in the room at this time.
--- NOTE | 2019-09-27 16:11 | NUR ---
Patient is resting in bed. complain of shoulder pain. son is visiting at bedside. checked temp 98.2.
--- NOTE | 2019-09-27 20:21 | NUR ---
Pt tolerated infusion without issues. Had some back pain today, PRN pain meds administered. Son at bedside through the day. No needs at this time. Report given to MARQUES Grullon.
--- NOTE | 2019-09-27 20:35 | NUR ---
Shift assessment complete. Pt resting in bed, awake, a&o, cooperative c cares. Pt c/o cont pain to L shoulder, PRN APAP provided c HS meds per pt req. Pt denies any other c/o. INT patent. Pt denies further needs. Call light in reach, will continue to monitor.
[2019-09-28 02:55] VITALS: BP 139/74; PULSE 62; TEMP 98.5
[2019-09-28 06:41] LABS: BASO % 0.2 % (0.0-2.0); EOS % 0.3 % (0-4.0); GRAN # 4.8 (1.4-6.5); GRAN % 75.4 % (42.2-75.2); LYMPH # 0.9 (1.2-3.4); LYMPH % 14.4 % (20.0-51.0); MEAN CELL VOLUME 94 fl (80.0-100.0); MEAN CORPUSCULAR HGB CONC 32 g/dl (33.0-37.0); MEAN PLATELET VOLUME 9.6 fl (7.4-10.4); MONO # 0.6 (0.1-0.6); MONO % 9.1 % (1.7-9.3); PLATELET COUNT 83 K/mm3 (130-400); RED BLOOD COUNT 3.18 M/mm3 (4.10-5.30); REDCELL DISTRIBUTION WIDTH-CV 17.2 % (11.5-14.5)
[2019-09-28 06:48] LABS: HEMATOCRIT 29.8 % (37.0-47.0); HEMOGLOBIN 9.5 g/dl (12.5-16.0); MEAN CORPUSCULAR HEMOGLOBIN 30 pg (27.0-31.0)
[2019-09-28 06:54] LABS: ALBUMIN 2.4 gm/dL (3.5-5.0); CALCIUM 7.1 mg/dL (8.4-10.2); CREATININE, serum 3.43 (0.52-1.25); PHOSPHOROUS 4.3 mg/dL (2.5-4.5); POTASSIUM 3.6 mmol/L (3.4-5.0)
--- NOTE | 2019-09-28 07:56 | NUR ---
Assessment complete. Pt sitting in recliner, just finished with PT, up to restroom and walked down the matos. No complaints of pain at this time. Feet are swollen this morning. Patient seems to be in good spirits this morning. Son resting at the bed side at this time. IV site is CD&I. No complaints of nausea at this time. No further needs expressed. Fall precautions in place. Call light in reach.
[2019-09-28 08:57] VITALS: BP 150/70; PULSE 59; TEMP 97.5
--- NOTE | 2019-09-28 10:59 | NUR ---
The patient's attending, Dr. Johnson, informed ALLA that he is recommending post-acute rehab for the patient and that he placed an IPR consult. ALLA then met with the patient and had the patient's son, Emmanuel, on speaker phone. SW discussed post-acute rehab and reviewed Medicare.gov's list of nursing homes in the [facility]. The patient's son reports that he needs to speak to his sister, Ligia, and will then contact ALLA back on their preferences. SW to continue to follow.
--- NOTE | 2019-09-28 11:46 | NUR ---
The patient's daughter, Ligia, contacted ALLA to inform that her and her families preference for the patient is [facility]. She states that they do not have a second preference at this time. She states that if I[facility] is unable to accept, then they may just look at home with home health. ALLA updated IPR Director, Zuleika. SW awaiting their screen.
--- NOTE | 2019-09-28 17:39 | NUR ---
Pt has had a good day. She spent most of the day in dialysis. Was up in the chair for breakfast and all of dialysis. Once arriving back she requested to lay in bed until dinner. Comfort cares provided for patient. Pt was complaining of ear pain upon picking her up from dialysis, provided PRN Tylenol to treat. No family at the bedside at this time. Call light is in reach.
[2019-09-28 17:57] VITALS: BP 146/77; PULSE 62; TEMP 98.2
--- NOTE | 2019-09-28 20:37 | NUR ---
PT IN CHAIR REQUESTING TO GO TO BED. TRANSFERRED SUCCESSFULLY, TABLE AT BEDSIDE, CALL LIGHT WITHIN REACH, SCD'S PLACED AND HEELS ELEVATED ON PILLOW. WARM BLANKET PLACED ON HER SHE COMPLAINED OF BEING COOL. PULSES 2+ IN UPPER AND LOWER EXTREMITIES. PT PLEASANT AND MAKING JOKES. TOOK MEDS WITH NO OBJECTIONS. PT HAS NO OTHER REQUESTS AT THIS TIME. WATER AND PHONE AND CALL LIGHT WITHIN REACH.
[2019-09-28 21:55] VITALS: BP 142/78; PULSE 79; TEMP 98.6
[2019-09-29 00:08] VITALS: BP 134/71; PULSE 79; TEMP 98.6
[2019-09-29 04:28] VITALS: BP 183/101; PULSE 75; TEMP 98.7
--- NOTE | 2019-09-29 04:45 | NUR ---
PT TRANSFERRED TO THE BATHROOM STAND BY ASSIST WITH WALKER. PT TRANSFERRED BACK TO BED. VITALS TAKEN AND BP WAS 183/101. HYDRALAZINE GIVEN. BP RECHECKED AND AT 147/75. PT REQUESTED SOCKS BE TAKEN OFF AND IV RETAPED. BOTH PERFORMED AND PT COVERED WITH BLANKETS REQUESTED. TABLE AT BEDSIDE, CALL LIGHT AND WATER WITHIN REACH. SON ASLEEP AT BEDSIDE. PT DENIES ANY OTHER NEEDS AT THIS TIME AND DENIES BOTH PAIN AND DISCOMFORT.
--- NOTE | 2019-09-29 05:00 | NUR ---
Assessments et notes per this shift reviewed et agreed upon by this RN
[2019-09-29 07:22] LABS: BASO % 0.1 % (0.0-2.0); EOS # 0.1 (0.0-0.7); EOS % 0.8 % (0-4.0); GRAN # 5.5 (1.4-6.5); GRAN % 75.5 % (42.2-75.2); LYMPH % 13.8 % (20.0-51.0); MEAN CELL VOLUME 94 fl (80.0-100.0); MEAN CORPUSCULAR HEMOGLOBIN 30 pg (27.0-31.0); MEAN CORPUSCULAR HGB CONC 32 g/dl (33.0-37.0); MEAN PLATELET VOLUME 9.5 fl (7.4-10.4); MONO # 0.7 (0.1-0.6); MONO % 9.2 % (1.7-9.3); PLATELET COUNT 81 K/mm3 (130-400); RED BLOOD COUNT 3.34 M/mm3 (4.10-5.30); REDCELL DISTRIBUTION WIDTH-CV 17.6 % (11.5-14.5)
[2019-09-29 07:28] LABS: HEMATOCRIT 31.3 % (37.0-47.0)
[2019-09-29 07:40] VITALS: BP 140/75; PULSE 66; TEMP 98.3
[2019-09-29 07:40] LABS: ALBUMIN 2.6 gm/dL (3.5-5.0); CALCIUM 7.6 mg/dL (8.4-10.2); CREATININE, serum 2.87 (0.52-1.25); PHOSPHOROUS 3.5 mg/dL (2.5-4.5); POTASSIUM 3.9 mmol/L (3.4-5.0)
--- NOTE | 2019-09-29 08:31 | NUR ---
Assessment complete. Patient sitting up in chair reading and waiting for breakfast. She is in very good spirits. The swelling in her legs bothers her but she is aware it is from the lack of ambulation. Her son was at the bedside this morning. The pt and the son are both aware of the patients plan of care. IV site CD&I. No complaints of pain or discomfort at this time. Pt is taking PO medications much better now. States she was hungry and ready for breakfast. She seems much better. No further needs were expressed at this time. Call light is in reach.
--- NOTE | 2019-09-29 10:39 | NUR ---
Zuleika, IPR Director, reports that she is able to accept the patient. The patient and patient's family have been notified. The patient is to discharge today, 09/29, to [facility]. No additional needs at this time.
[2019-09-29 11:57] VITALS: BP 140/75; PULSE 66; TEMP 98.3
[2019-09-29] MEDS ORDERED: PREDNISONE50 MG PO (14:25)
[2019-09-29] MEDS ORDERED: PROTONIX 40MG T40 MG PO (14:25)
[2019-09-29] MEDS ORDERED: APRESOLINE 10MG10 MG PO (14:25)
[2019-09-29] MEDS ORDERED: TYLENOL 500MG500 MG PO (14:25)
[2019-09-29] MEDS ORDERED: ULTRAM 50MG TAB50 MG PO (14:25)
[2019-09-29] MEDS ORDERED: JANUVIA25 MG PO (14:25)
[2019-09-29] MEDS ORDERED: PRINIVIL5 MG PO (14:25)
[2019-09-29 16:10] VITALS: BP 132/62; PULSE 64; TEMP 98.8
--- NOTE | 2019-09-29 16:45 | NUR ---
Pt has had a very uneventful day. She ate breakfast and lunch very well. Was just waiting to go to [facility] as she knew this was the plan. No pain or discomfort today. Will assist pt will belongs and transfer to [facility].
== END 2019-09-29 16:47 | DRG 674 ==
LOC: COL.ER 23:33 → MEDICAL 09-11 02:19
PROVIDERS: Emergency Medicine; Internal Medicine; Surgery; ADMIT Internal Medicine Nephrology
PROC: 0TB13ZX Excision of Left Kidney, Percutaneous Approach, Diagnostic (ICD-10-PCS; 2019-09-11)
PROC: 03BT0ZX Excision of Left Temporal Artery, Open Approach, Diagnostic (ICD-10-PCS; principal; 2019-09-11 16:00)
PROC: 5A1D70Z Performance of Urinary Filtration, Intermittent, Less than 6 Hours Per Day (ICD-10-PCS; 2019-09-14)
PROC: 0JH63XZ Insertion of Tunneled Vascular Access Device into Chest Subcutaneous Tissue and Fascia, Percutaneous Approach (ICD-10-PCS; 2019-09-14)
PROC: 02HV33Z Insertion of Infusion Device into Superior Vena Cava, Percutaneous Approach (ICD-10-PCS; 2019-09-14)
PROC: B518YZA Fluoroscopy of Superior Vena Cava using Other Contrast, Guidance (ICD-10-PCS; 2019-09-14)
PROC: 0DB98ZX Excision of Duodenum, Via Natural or Artificial Opening Endoscopic, Diagnostic (ICD-10-PCS; 2019-09-21)
PROC: 0DBN8ZX Excision of Sigmoid Colon, Via Natural or Artificial Opening Endoscopic, Diagnostic (ICD-10-PCS; 2019-09-22)
DX: N01.7 Rapidly progressive nephritic syndrome with diffuse crescentic glomerulonephritis (principal); N39.0 Urinary tract infection, site not specified; E87.2 Acidosis; K92.1 Melena; N17.9 Acute kidney failure, unspecified; F41.9 Anxiety disorder, unspecified; D50.0 Iron deficiency anemia secondary to blood loss (chronic); E78.5 Hyperlipidemia, unspecified; E11.65 Type 2 diabetes mellitus with hyperglycemia; E03.9 Hypothyroidism, unspecified; K29.30 Chronic superficial gastritis without bleeding; R51 Headache; B00.9 Herpesviral infection, unspecified; D69.6 Thrombocytopenia, unspecified; L89.159 Pressure ulcer of sacral region, unspecified stage; B95.2 Enterococcus as the cause of diseases classified elsewhere; E83.39 Other disorders of phosphorus metabolism; N18.9 Chronic kidney disease, unspecified; E11.22 Type 2 diabetes mellitus with diabetic chronic kidney disease; D72.829 Elevated white blood cell count, unspecified; T38.0X5A Adverse effect of glucocorticoids and synthetic analogues, initial encounter; D12.5 Benign neoplasm of sigmoid colon; Z90.710 Acquired absence of both cervix and uterus; Z90.89 Acquired absence of other organs; Z90.721 Acquired absence of ovaries, unilateral
CPT/HCPCS: A4216; C9113; J0690; J0696; J1170; J1200; J1644; J1815; J1940; J1956; J2060; J2250; J2405; J2704; J2765; J2916; J2930; J3010; J3370; J7030; J7040; J7050; J7060; J7512; J9070; P9016; Q5106

== ENCOUNTER 2019-09-29 15:04 | Inpatient (IN) | payer MEDICARE, OTHER ==
[~2019-09-29] VITALS: Ht 149.9 cm; Wt 55.0 kg
[~2019-09-29 15:04] MED LIST changes: +APRESOLINE 10MG10 MG PO; +JANUVIA25 MG PO; +PREDNISONE50 MG PO; +PRINIVIL5 MG PO; +TYLENOL 500MG500 MG PO; +ULTRAM 50MG TAB50 MG PO
[2019-09-29 17:24] VITALS: BP 189/103; PULSE 65; TEMP 98.1
--- NOTE | 2019-09-29 17:28 | NUR ---
Report from [facility] RN. Pt arrived, in bed, alert, pleasant, cooperative, has accent, denies pain, dialysis catheter with two lumens is clamped and covered with gauze and tape, CDI. Removed multiple tele patches. LIGHT FIXTURE SERVICER reports pt's BP elevated, will give PRN apresoline.
--- NOTE | 2019-09-29 17:33 | NUR ---
Removed Clonidine 0.1mg patch from pt's left chest that was dated 09/23
[2019-09-29 19:14] VITALS: BP 162/77; PULSE 61
[2019-09-29 21:20] VITALS: BP 156/84; PULSE 69
--- NOTE | 2019-09-29 22:30 | NUR ---
Patient up to bathroom with BUNCHER MACHINE and voids. Chemo precautions utilized at this time until clarification on duration of precautions following cytoxan administered IV on 09/27/19 at 1151. BUNCHER MACHINE placed chux over stool and double flushed toilet then cleansed toilet seat with clorox wipes. HS meds all reviewed and taken 1 at a time earlier. Patient denies pain. Rests on bed and son staying with patient through the night-rests in recliner.
--- NOTE | 2019-09-30 01:00 | NUR ---
Patient has been resting in bed with eyes closed. Respirations with ease.
[2019-09-30 03:22] VITALS: BP 159/77; PULSE 64; TEMP 98.2
--- NOTE | 2019-09-30 03:41 | NUR ---
Patient called for assist to the bathroom. Patient standby assist to the bathroom with walker. Gait steady and manages all toileting tasks. Patient has allevyn dressing to left inner buttucks. Dressing opened and noted 1.5 to 2 cm stage 2 scabbed sore/edges not red and has 2-2mm scabs beside wound/no drainage noted. To sink and washes up then rests self back in bed with pillow under buttucks. SCD's on. Denies pain. Educated on therapy schedule and breakfast around 0700.
[2019-09-30 07:35] VITALS: BP 183/88; PULSE 62; TEMP 98.6
[2019-09-30 13:26] LABS: ALBUMIN 2.9 gm/dL (3.5-5.0); BILIRUBIN,TOTAL 0.8 mg/dL (0.0-1.0); CALCIUM 7.7 mg/dL (8.4-10.2); CREATININE, serum 3.1 (0.52-1.25); POTASSIUM 3.8 mmol/L (3.4-5.0); TOTAL PROTEIN 5.6 gm/dL (6.4-8.2)
[2019-09-30 13:28] LABS: HEMOGLOBIN 10.7 g/dl (12.5-16.0); MEAN CELL VOLUME 94 fl (80.0-100.0); MEAN CORPUSCULAR HEMOGLOBIN 30 pg (27.0-31.0); MEAN CORPUSCULAR HGB CONC 32 g/dl (33.0-37.0); MEAN PLATELET VOLUME 9.3 fl (7.4-10.4); PLATELET COUNT 86 K/mm3 (130-400); RED BLOOD COUNT 3.54 M/mm3 (4.10-5.30); REDCELL DISTRIBUTION WIDTH-CV 17.5 % (11.5-14.5)
[2019-09-30 13:33] LABS: HEMATOCRIT 33.3 % (37.0-47.0)
[2019-09-30 13:48] LABS: EOSINOPHIL 1 % (0-4); LYMPHOCYTE 2 % (20.0-51.0)
[2019-09-30 13:49] LABS: NEUTROPHILS 97 % (42.0-75.2); PLATELET ESTIMATE DECREASED (NORMAL)
--- NOTE | 2019-09-30 16:41 | NUR ---
Awning Craftsperson attempted to complete intake with patient as she is new to [facility]. Patient states she has had a long day. Patient expressed that she does not hear well and prefers SW discuss any questions or updates with her children. SW attempted to call son, Emmanuel ([phone]) but was not able to leave a message as the voicemail box was full. SW contacted daughter, Ligia (ph#[phone]) to complete intake questions. Patient lives in [place] and Ligia reports Emmanuel lives with her. Patient sees Dr. David for primary care and obtains medications from [facility] pharmacy. Patient has a walker at home but family may be interested in obtaining a new one. Ligia reports in the last month, patient has been weaker and needed more assistance with ADLS. Ligia also reports family has been in contact with an defense attorney to establish DPOA-HC. SW to continue to follow.
[2019-09-30 17:24] VITALS: BP 123/68; PULSE 64; TEMP 97.8
--- NOTE | 2019-09-30 20:00 | NUR ---
BEDSIDE REPORT REC'D FROM BEN Chow RN, PT RESTING IN BED. NO NEEDS AT THIS TIME.
[2019-09-30 20:16] VITALS: BP 138/86; PULSE 64
--- NOTE | 2019-09-30 21:11 | NUR ---
Shift summary: Pt A&O, pleasantly cooperative, CGA with walker, pain to left shoulder, attended therapies, followed chemo precautions. Mepilex to left buttock for healing stage II scabs x 4. Pt attended dialysis via wheelchair and returned to room, bedside report to MARQUES Luu.
[2019-10-01 00:36] VITALS: BP 158/84; PULSE 71; TEMP 98.7
--- NOTE | 2019-10-01 03:30 | NUR ---
ASSISTED PT TO BR W/ WALKER. SLOW STEADY GAIT. PT VOIDED CLEAR ELIAS URINE. NO BM. CONTINUE CHEMO PRECAUTIONS.
[2019-10-01 03:42] VITALS: BP 148/81; PULSE 64; TEMP 97.9
--- NOTE | 2019-10-01 06:20 | NUR ---
PT AWAKE. SITTING UP IN BED CLIPPING HER NAILS. SON AT BEDSIDE. PT HAD QUIET UNEVENTFUL NIGHT. PT REQUESTED SLEEPING MED FOR NIGHTS. WILL RELAY THIS INFOR IN SHIFT REPORT.
--- NOTE | 2019-10-01 14:55 | NUR ---
Cream Hauler met with patient to follow up before the weekend. Patient reports she is tired from therapy. Patient does not have any questions or concerns at this time. Patient states if SW needs anything to call her children. SW to continue to follow.
--- NOTE | 2019-10-01 16:20 | NUR ---
Call placed to Dr. Johnson at 4:20 PM, he answered phone, but stated that he could not hear me and hung up. Need to ask if patient is okay to get an order for Ativan po for at bedtime as needed.
--- NOTE | 2019-10-01 16:25 | NUR ---
Patient attended all therapies today. Dr. Aguirre saw patient see new orders for Melatonin at . Call placed to Dr. Johnson to ask about a new Ativan order, will keep trying to reach him when he is available to talk.
[2019-10-01 17:01] VITALS: BP 151/90; PULSE 61; TEMP 98.5
--- NOTE | 2019-10-01 18:05 | NUR ---
Patient has multiple small scabbed over areas on left inner buttocks - mepilex in place.
--- NOTE | 2019-10-01 19:27 | NUR ---
REC'D SHIFT REPORT FROM LÁZARO Issa RN EARLIER. PT RESTING IN BED. READY TO CHANGE BED OUT FOR PRESENT ONE D/T POOR COMFORT WEAR. PT DECLINED AT THIS TIME. VERY TIRED. CALL LIGHT IN REACH. BED ALARM SET.
[2019-10-01 20:25] VITALS: BP 154/84
--- NOTE | 2019-10-01 20:30 | NUR ---
PT RESTING IN BED. AWAKE. REVIEWED NEW ORDRER FOR MELATONIN. PT AGREEABLE. WANTS TO SLEEP TONIGHT. CONTINUES CHEMO PRECAUTIONS & FLUID RESTRICTIONS ORDERED. NO NEEDS AT THIS TIME. CALL LIGHT IN REACH. BED ALARM SET.
--- NOTE | 2019-10-01 20:35 | NUR ---
GAVE APRESOLINE 10MG FOR SBP>154.
[2019-10-02 00:15] VITALS: BP 147/81
[2019-10-02 05:21] VITALS: BP 147/71; PULSE 58; TEMP 97.9
--- NOTE | 2019-10-02 07:20 | NUR ---
Report from MARQUES Luu. Pt called appropriately for assistance, has PT at 0815, breakfast here, set up assist for changing/dressing underwear, socks, shirt, and pants. Pt indep with opening basic lids on food containers.
--- NOTE | 2019-10-02 08:48 | NUR ---
Changing out pt's bed with assist of house keeping as pt c/o "hole" in middle of mattress.
--- NOTE | 2019-10-02 12:54 | NUR ---
Pt to room 18 via wheelchair for dialysis with TMAEKA Moya RN, with chart and BP cuff and blankets. DIAMOND genao.
[2019-10-02 13:17] LABS: HEMATOCRIT 31.5 % (37.0-47.0); HEMOGLOBIN 10.4 g/dl (12.5-16.0); MEAN CELL VOLUME 94 fl (80.0-100.0); MEAN CORPUSCULAR HEMOGLOBIN 31 pg (27.0-31.0); MEAN CORPUSCULAR HGB CONC 33 g/dl (33.0-37.0); MEAN PLATELET VOLUME 9.5 fl (7.4-10.4); PLATELET COUNT 98 K/mm3 (130-400); RED BLOOD COUNT 3.36 M/mm3 (4.10-5.30); REDCELL DISTRIBUTION WIDTH-CV 18.3 % (11.5-14.5)
[2019-10-02 13:27] LABS: ALBUMIN 3.1 gm/dL (3.5-5.0); PHOSPHOROUS 3.1 mg/dL (2.5-4.5); POTASSIUM 3.3 mmol/L (3.4-5.0)
[2019-10-02 14:21] LABS: ANISOCYTOSIS 2+; EOSINOPHIL 1 % (0-4); LYMPHOCYTE 1 % (20.0-51.0); NEUTROPHILS 98 % (42.0-75.2)
--- NOTE | 2019-10-02 16:34 | NUR ---
Pt returned from dialysis, toileted, continent, chemo precautions at noon, items removed from room. Pt changing into night time clothes.
[2019-10-02 16:47] VITALS: BP 134/74; PULSE 62; TEMP 97.6
--- NOTE | 2019-10-02 18:38 | NUR ---
Pt had some food from home for lunch, including earle wiley (sp?)
--- NOTE | 2019-10-02 18:53 | NUR ---
Pt toileted, returned to bed with SCDs to BLE, gripper socks in reach, bed alarm on, call lt in reach.
[2019-10-02 20:42] VITALS: BP 162/80; PULSE 64
[2019-10-03 03:55] VITALS: BP 185/94; PULSE 68; TEMP 98.4
--- NOTE | 2019-10-03 05:25 | NUR ---
Patient has rested well throughout the night. PRN Hydralazine required this morning. Denies pain. Dialysis cath to right chest CDI. Patient utilizes SBA to the bathroom with walker and gait belt. Bed alarms on. Will continue to monitor patient.
--- NOTE | 2019-10-03 07:43 | NUR ---
Bedside report from MARQUES Eller. Pt was in bed, turned bed alarm on, denies pain, yellow socks on. Pt called to toilet after breakfast, amb steady with walker, stood at sink for oral cares. Will re-assess BP as it was high earlier on noc shift. Pt pleasant, alert, oriented, has language barrier.
[2019-10-03 07:48] VITALS: BP 143/76; PULSE 65
[2019-10-03 11:27] VITALS: BP 139/75; PULSE 62
--- NOTE | 2019-10-03 11:39 | NUR ---
Amb around surgical desk x2 with walker, steady.
[2019-10-03 17:07] VITALS: BP 149/86; PULSE 70; TEMP 97.8
--- NOTE | 2019-10-03 21:00 | NUR ---
PT ASSISTED TO BR. NEEDS CUING FOR SAFETY- CARRIES WALKER OR LEAVES IT TO HER SIDE. PT VOIDING MORE TODAYL. SEE UO. CONTINUE FLUID RESTRICTION. SON AT BEDSIDE. VERY SUPPORTIVE. PT DENIES PAIN AT PRESENT TIME. TAKES MELATONIN FOR SLEEP. FEET STILL +3 EDEMA. CALL LIGHT IN REACH. BED ALARM SET.
--- NOTE | 2019-10-03 21:27 | NUR ---
Report to MARQUES Luu. At shift change, pt was in bed with alarm on, call lt in reach.
[2019-10-04 00:15] VITALS: BP 146/80
[2019-10-04 04:43] VITALS: BP 175/93; PULSE 68; TEMP 98
--- NOTE | 2019-10-04 04:45 | NUR ---
175/93 BP. APRESOLINE GIVEN.
[2019-10-04 07:57] VITALS: BP 151/76; PULSE 66
--- NOTE | 2019-10-04 08:16 | NUR ---
Patient just left with Abelino SANCHEZ and was in a pleasent mood. Patient denied pain this morning. She has +2 edema to bilateral feet. Urinated 100 ml this am and was a SBA with walker this morning. Will continue to monitor.
--- NOTE | 2019-10-04 12:28 | NUR ---
Patient was just taken down to dialysis Room #18 per staff Barbie/MARCELLA.
[2019-10-04 13:00] LABS: ALBUMIN 3.2 gm/dL (3.5-5.0); CREATININE, serum 2.87 (0.52-1.25); PHOSPHOROUS 3.6 mg/dL (2.5-4.5); POTASSIUM 3.4 mmol/L (3.4-5.0)
[2019-10-04 13:07] LABS: HEMATOCRIT 32.4 % (37.0-47.0); HEMOGLOBIN 10.3 g/dl (12.5-16.0); MEAN CELL VOLUME 97 fl (80.0-100.0); MEAN CORPUSCULAR HEMOGLOBIN 31 pg (27.0-31.0); MEAN CORPUSCULAR HGB CONC 32 g/dl (33.0-37.0); MEAN PLATELET VOLUME 9.1 fl (7.4-10.4); PLATELET COUNT 121 K/mm3 (130-400); RED BLOOD COUNT 3.34 M/mm3 (4.10-5.30); REDCELL DISTRIBUTION WIDTH-CV 19.2 % (11.5-14.5)
[2019-10-04 13:13] LABS: BAND 2 % (0-10); EOSINOPHIL 1 % (0-4); LYMPHOCYTE 2 % (20.0-51.0); NEUTROPHILS 94 % (42.0-75.2); PLATELET ESTIMATE DECREASED (NORMAL)
--- NOTE | 2019-10-04 14:41 | NUR ---
Workers Compensation Adjuster scheduled family meeting with patient's children, Ligia and Emmanuel for tomorrow (10/05/19) at 1300. SW notified IPR Director, Zuleika. SW attempted to meet with patient who was down in dialysis but she was asleep. SW to continue to follow.
[2019-10-04 16:31] VITALS: BP 109/58; PULSE 64; TEMP 98.1
[2019-10-04 20:00] VITALS: BP 140/70
--- NOTE | 2019-10-04 20:00 | NUR ---
Patient rests in bed. States her son is bring in sandwich for her tonight. HS meds all reviewed and given. BP 140/70. Patient denies pain or needs. BLE elevated on pillow. SCD's applied.
--- NOTE | 2019-10-04 20:24 | NUR ---
Patient returned from Dialysis this evening after taking 3000 ml off her. Her blood pressure is lower, but the dialysis nurse reported that she had no dizziness or light headedness. Patient in pleasent mood at this time, lying in bed, call light in reach and alarm set. This nurse reported off to night nurse.
--- NOTE | 2019-10-05 00:15 | NUR ---
Patient up with assist to and from the bathroom to have bm. New mepilex applied to healing/peeling coccyx wound left inner buttuck. Patient rests self back in bed. States hasn't been sleeping well thus far. Will monitor.
--- NOTE | 2019-10-05 02:00 | NUR ---
Patient rests with eyes closed. Respirations with ease.
--- NOTE | 2019-10-05 03:00 | NUR ---
Patient rests with eyes closed. Respirations with ease.
[2019-10-05 04:45] VITALS: BP 173/88; PULSE 58; TEMP 98.4
[2019-10-05 10:20] VITALS: BP 159/80
--- NOTE | 2019-10-05 13:50 | NUR ---
Tourism Radio Presenter attended family meeting in patient's room which included patient's son Emmanuel, patient's daughter Ligia, IPR Director MARQUES To and PT/OT. Zuleika opened the meeting to explain purpose then PT/OT reviewed patient's progress. Patient's family discussed lab results with MARQUES Pedro. The team reviewed with patient the importance of continuing to do things for herself and stay active once she returns home. Patient expressed understanding. Patient is looking forward to returning home and gardening. Patient scheduled for discharge on Friday10/09/19. SW to continue to follow to monitor for discharge needs and recommendations.
--- NOTE | 2019-10-05 14:38 | NUR ---
Report from MARQUES Lin. Pt A&O, c/o being more tired today, adv to mod I in rm w/ walker. Pt takes pills with thin liquids, on 1500 ml fluid restriction, dialysis cath dry and intact without shadowing. Pt's BLE less edematous. Pain to low back, had ice pack, declined tylenol. Nurse attended family meeting, answered family's questions.
[2019-10-05 15:48] VITALS: BP 140/86; PULSE 68; TEMP 97.5
--- NOTE | 2019-10-05 19:13 | NUR ---
Bedside report given to MARQUES Lin. Pt richmond mod I in Rm/Angel with walker.
[2019-10-06 03:47] VITALS: BP 158/85; PULSE 68; TEMP 98
--- NOTE | 2019-10-06 03:56 | NUR ---
Patient sitting up in bed awake. States sleeping off and on. "not slept too well". Denies pain or needs at this time. Apresoline given for SBP 158.
[2019-10-06 08:03] VITALS: BP 173/92; PULSE 62
--- NOTE | 2019-10-06 09:17 | NUR ---
Patient is independent in her room with her walker. She uses call light appropriatly. Patient denied pain this morning, but did take Tylenol to help with any aching that may develop with therapy this morning. Patient BP was checked and was elevated this morning so was given her PRN Apresoline. Will continue to monitor. Patient will be going to dialysis later today.
[2019-10-06 12:51] LABS: GRAN # 4.9 (1.4-6.5); GRAN % 94.7 % (42.2-75.2); HEMOGLOBIN 10.6 g/dl (12.5-16.0); LYMPH # 0.2 (1.2-3.4); LYMPH % 2.9 % (20.0-51.0); MEAN CELL VOLUME 95 fl (80.0-100.0); MEAN CORPUSCULAR HEMOGLOBIN 31 pg (27.0-31.0); MEAN CORPUSCULAR HGB CONC 32 g/dl (33.0-37.0); MEAN PLATELET VOLUME 9.2 fl (7.4-10.4); MONO # 0.1 (0.1-0.6); MONO % 1.6 % (1.7-9.3); PLATELET COUNT 111 K/mm3 (130-400); RED BLOOD COUNT 3.47 M/mm3 (4.10-5.30); REDCELL DISTRIBUTION WIDTH-CV 18.6 % (11.5-14.5)
[2019-10-06 12:52] LABS: HEMATOCRIT 33.1 % (37.0-47.0)
[2019-10-06 13:00] LABS: ALBUMIN 3.4 gm/dL (3.5-5.0); CALCIUM 8.2 mg/dL (8.4-10.2); CREATININE, serum 2.72 (0.52-1.25); PHOSPHOROUS 4.6 mg/dL (2.5-4.5); POTASSIUM 3.4 mmol/L (3.4-5.0)
--- NOTE | 2019-10-06 14:57 | NUR ---
Patient went to dialysis following her lunch she went to Room #18 for her treatment. Patient will be discharging on Friday and appointments have been made. Skin assessment completed and Stage II pressure sore on bottom has healed and is now a stage I at this time. Patient has a mepilex in place to continue to protect this area. Will continue to monitor.
--- NOTE | 2019-10-06 16:53 | NUR ---
Motorcycle Riding Instructor met with patient to review and provide copy of team conference notes. Patient does not have any questions at this time. ALLA contacted Ligia to review discharge recommendations as patient would like her children to be involved in discharge planning. Ligia advised they have not decided on what to do about the front wheeled walker yet. Ligia states she believes they will be able to install grab bars but needs to talk with her family. Ligia states she will also let SW know where patient will go for outpatient PT. ALLA to continue to follow.
[2019-10-06 17:18] VITALS: BP 101/63; PULSE 64; TEMP 97.4
--- NOTE | 2019-10-06 19:29 | NUR ---
Patient returned from dialysis they took 3 L off today. Patient VSS. Patient was agitated with kitchen this evening, not receiving her salad and salad dressing as well as strawberries. This nurse called down to the kitchen and patient did finaly receive the items, but a lot later then was expected. Patient has requested that she get oatmeal with her breakfast this next morning. This nurse will fax down this request for the kitchen to see for tomorrow morning. Patient currently resting in recliner with by her side. She is independent in her room with a walker.
[2019-10-06 20:00] VITALS: BP 111/66
--- NOTE | 2019-10-06 20:00 | NUR ---
PT'S PREACHER WAS IN VISITING EARLIER. PT SITTING UP IN BED READING. BP 111/66 TONIGHT. NO APRESOLINE NEEDED. MOD I IN ROOM. VERBALIZES EXCITEMENT ABOUT GOING HOME FRIDAY. FEET ARE STILL PUFFY BUT IMPROVED. NO NEEDS AT THIS TIME. CALL LIGHT IN REACH.
--- NOTE | 2019-10-07 05:30 | NUR ---
PT HAS SLEPT INTERMITTENTLY THROUGH THE NIGHT. HAD MELATONIN LAST NIGHT. CONTINUES MOD I IN ROOM. UNEVENTFUL NIGHT.
[2019-10-07 06:21] VITALS: BP 123/75; PULSE 55; TEMP 97.7
--- NOTE | 2019-10-07 06:24 | NUR ---
PT AWAKE. SITTING UP IN RECLINER. DENIES NEEDS. SBP 123 THIS AM.
--- NOTE | 2019-10-07 10:02 | NUR ---
Bedside report from MARQUES Luu. Pt richmond mod I in rm w/ walker, yellow gripper socks in place, denies pain at 0650, A&O, pleasantly cooperative. Denies dizziness. Pt reports having a BM this am. On fluid restriction. Pt later called for tylenol and ice pack for low back, given. Removed dressing from coccyx and found Stage II cluster of small blisters to right inner buttock, cleansed with wipe, non-blanchable, applied barrier cream. Redness on left inner buttock is blanchable. Pt requested leaving dressing off as it hinders her passing gas and having a BM. Demonstrated to pt how to use barrier cream to site. Pt states son Emmanuel is person to call about setting up OP PT.
--- NOTE | 2019-10-07 12:16 | NUR ---
Pt has female friend visiting
[2019-10-07 15:44] VITALS: BP 126/79; PULSE 63; TEMP 97.9
--- NOTE | 2019-10-07 18:26 | NUR ---
Pt had a good day, reports feeling tired, richmond mod I in room with walker. Had SCDs on for a while. Returned to bed with foam mattress overlay. Denies any needs at this time.
--- NOTE | 2019-10-07 20:00 | NUR ---
BEDSIDE SHIFT REPORT REC'D BY BEN Chow RN EARLIER. CONTINUED MOD I IN ROOM AND FLUID RESTRICTION. PT VERY TALKATIVE AND CHEERFUL. DENIES NEEDS AT THIS TIME. SEE SHIFT ASSESSMENT.
[2019-10-07 20:10] VITALS: BP 135/79; PULSE 70
--- NOTE | 2019-10-07 21:57 | NUR ---
PT SLEEPING. NO DISTRESS.
--- NOTE | 2019-10-08 04:36 | NUR ---
PT HAS SLEPT INTERMITTENTLY THROUGH THE NIGHT. UNEVENTFUL NIGHT.
[2019-10-08 05:18] VITALS: BP 137/88; PULSE 60; TEMP 98
--- NOTE | 2019-10-08 07:43 | NUR ---
Pt c/o pancake not being fully cooked, "smells like flour". Nurse cut pancake in half and showed pt that it is cooked through, but it does not have any brown color to it. Brought raisin bran and milk instead.
--- NOTE | 2019-10-08 09:09 | NUR ---
Bedside report from MARQUES Luu. Pt richmond mod I in rm w/ walker. A&O, pleasantly cooperative, denies pain at this time, wearing gripper socks. Reminded pt to call after she finishes lunch today as she will likely have dialysis immediately following lunch. Pt verbalized understanding.
[2019-10-08 12:03] VITALS: BP 146/75; PULSE 57; TEMP 97.7
[2019-10-08 13:13] LABS: BASO % 0.2 % (0.0-2.0); GRAN # 4.8 (1.4-6.5); HEMOGLOBIN 10.8 g/dl (12.5-16.0); LYMPH # 0.1 (1.2-3.4); LYMPH % 2.6 % (20.0-51.0); MEAN CELL VOLUME 96 fl (80.0-100.0); MEAN CORPUSCULAR HEMOGLOBIN 31 pg (27.0-31.0); MEAN CORPUSCULAR HGB CONC 32 g/dl (33.0-37.0); MEAN PLATELET VOLUME 8.8 fl (7.4-10.4); MONO # 0.1 (0.1-0.6); MONO % 1.4 % (1.7-9.3); PLATELET COUNT 99 K/mm3 (130-400); RED BLOOD COUNT 3.48 M/mm3 (4.10-5.30); REDCELL DISTRIBUTION WIDTH-CV 18.5 % (11.5-14.5)
[2019-10-08 13:22] LABS: HEMATOCRIT 33.5 % (37.0-47.0)
[2019-10-08 13:27] LABS: ALBUMIN 3.5 gm/dL (3.5-5.0); CALCIUM 8.2 mg/dL (8.4-10.2); CREATININE, serum 2.63 (0.52-1.25); PHOSPHOROUS 4.6 mg/dL (2.5-4.5); POTASSIUM 3.9 mmol/L (3.4-5.0)
--- NOTE | 2019-10-08 13:33 | NUR ---
1246: Pt to dialysis in wheelchair, report to TAMEKA Moya RN
[2019-10-08] MEDS ORDERED: PRINIVIL10 MG PO (13:46)
[2019-10-08] MEDS ORDERED: TOPROL XL 25MG25 MG PO (13:46)
[2019-10-08] MEDS ORDERED: DEMADEX 20MG20 M1 PO (13:47)
[2019-10-08] MEDS ORDERED: JANUVIA25 MG PO (13:48)
[2019-10-08] MEDS ORDERED: PREDNISONE50 MG PO (13:51)
[2019-10-08 16:32] VITALS: BP 120/68; PULSE 63; TEMP 97.2
--- NOTE | 2019-10-08 16:44 | NUR ---
Senior Datastage Developer contacted Ligia to follow up on decision about front wheeled walker. ALLA has followed up with Ligia and Emmanuel on multiple occasions about front wheeled walker. Ligia advised it's up to her brother Emmanuel but that she wanted SW to let Emmanuel know that "the more Medicare pays now, the less they will pay later" and wanted to consider using the walker they already have at home that was their grandmother's. ALLA contacted Emmanuel to follow up on the walker. ALLA advised that typically Medicare will cover either a walker or a wheelchair as patient's family had some concerns that patient may need a wheelchair in the near future. Emmanuel states he will just find the walker they have at home for patient to use. Emmanuel states he is sure he can find it and will ensure patient has a walker upon discharge. ALLA met with patient to follow up before discharge tomorrow and patient states she is looking forward to going home. ALLA attempted to present and explain IM form to patient but she states she will not sign anything and wants one of her children to sign. ALLA attempted to call Emmanuel but could not leave a message as voicemailbox was full. ALLA contacted Ligia and explained IM form over the phone. Ligia provided verbal consent as signature and verbalized understanding. ALLA placed form in chart and provided copy to patient. Patient to discharge home tomorrow with family. ALLA confirmed with RN, Mayela that outpatient PT appointment has been set up.
--- NOTE | 2019-10-08 19:30 | NUR ---
PATIENT RESTING IN BED DURING CHANGE OF SHIFT REPORT FROM DAY SHIFT NURSE. BED ALARM ON.
--- NOTE | 2019-10-08 20:17 | NUR ---
Pt returned from dialysis prior to supper. Bedside report to MARQUES Mcgraw. Dialysis catheter intact without shadowing. Pt richmond mod I in rm w/ walker. Plan to discharge home tomorrow.
--- NOTE | 2019-10-09 02:45 | NUR ---
SLEEPS WITHOUT AWAKENING WHEN DOOR TO ROOM IS OPENED. BREATHING NONLABORED AND EVEN.
[2019-10-09 05:57] VITALS: BP 131/80; PULSE 60; TEMP 98.6
--- NOTE | 2019-10-09 09:35 | NUR ---
Patient was seen by Dr. Aguirre this morning for discharge. Patient currently packing her room up so that she can go home today. Patient was given tylenol to help with right inner butt check pain due to 1 cm round area of blisters. Left inner butt cheek has heeled. Non blanchable and no scabs present. Will continue to monitor.
--- NOTE | 2019-10-09 10:23 | NUR ---
Dr. Aguirre assessed patient's right inner buttock blisters. He reported that it didn't look like Shingles, but to have patient follow up with PCP to monitor the area. It is 1 cm in diameter and ther are two areas. Patient was educated on the need to follow up with her PCP on this as well as using barrier ointment to protect it. She voiced understanding.
--- NOTE | 2019-10-09 10:29 | NUR ---
Patient Health Summary, Discharge Summary, and Home Meds printed and reviewed with patient and son. Stressed importance of follow up appointments. Called prescription for Pantoprazol to pharmacy of choice. Belongings gathered by patient including clothes, phone, education and outreach coordinator, bible and glasses. Patient transported via wheelchair by MANUFACTURING DIRECTOR/Barbie and seatbelted for ride home with son. Patient and son denied questions.
--- NOTE | 2019-10-09 11:13 | NUR ---
Reviewed discharge appointments, meds and patient's son concerns prior to patient's discharge at 11:10 AM. Son was concerned about his mom's WBC count and having to be seen at patient's PCP appointment next week and being around other sick people. The son will call patient's PCP on Friday to discuss his concerns.
== END 2019-10-09 11:10 | disposition home or self-care (01) | DRG 947 ==
PROVIDERS: Internal Medicine Nephrology; ADMIT Internal Medicine
PROC: 5A1D70Z Performance of Urinary Filtration, Intermittent, Less than 6 Hours Per Day (ICD-10-PCS; principal; 2019-09-30)
DX: R53.81 Other malaise (principal); N18.6 End stage renal disease; N17.9 Acute kidney failure, unspecified; I12.0 Hypertensive chronic kidney disease with stage 5 chronic kidney disease or end stage renal disease; N39.0 Urinary tract infection, site not specified; E46 Unspecified protein-calorie malnutrition; G72.9 Myopathy, unspecified; L89.90 Pressure ulcer of unspecified site, unspecified stage; R51 Headache; I77.6 Arteritis, unspecified; E11.22 Type 2 diabetes mellitus with diabetic chronic kidney disease; I08.2 Rheumatic disorders of both aortic and tricuspid valves; D69.6 Thrombocytopenia, unspecified; E03.9 Hypothyroidism, unspecified; K63.5 Polyp of colon; E27.9 Disorder of adrenal gland, unspecified; N28.1 Cyst of kidney, acquired; F41.9 Anxiety disorder, unspecified; B95.2 Enterococcus as the cause of diseases classified elsewhere; Z79.891 Long term (current) use of opiate analgesic; Z79.52 Long term (current) use of systemic steroids; Z99.2 Dependence on renal dialysis; Z88.0 Allergy status to penicillin; Z88.2 Allergy status to sulfonamides
CPT/HCPCS: 99222-AI; 99232-AI; 99239; J1644; J7030; J7512; Q5105

== ENCOUNTER 2019-10-21 09:00 | Outpatient (RCR) | payer MEDICARE, OTHER | END 2020-01-10 | disposition home or self-care (01) | LOC: WSC | DX: R53.81 Other malaise (principal) ==

== ENCOUNTER → 2019-10-21 | Outpatient (CLI) | payer MEDICARE, OTHER ==
[~2019-10-21] MED LIST changes: +DEMADEX 20MG20 M1 PO; +PRINIVIL10 MG PO; +TOPROL XL 25MG25 MG PO
== END ==
LOC: COL.LAB 11:22
DX: R05 Cough (principal)

== ENCOUNTER 2019-12-15 09:44 | Outpatient (RCR) | payer MEDICARE, OTHER ==
[~2019-12-15] VITALS: Ht 149.9 cm; Wt 63.0 kg
[2019-12-15 10:48] VITALS: BP 181/95; PULSE 64; TEMP 98.4
--- NOTE | 2019-12-15 11:28 | NUR ---
Pt presented to unit per wheelchair at 1000. She is wearing gloves and a mask and states she is anxious. Admission questions asked, INT placed by Hallie Moon RN on first attempt and fluids started as per MAR at 250ml/hr initially. Pt's BP elevated x3 using small and medium cuff 196/95, 198/100, 195/96. Dr Johnson notified and order for hydralozine 25 mg now and repeat in two hours recieved, along with reduce IV to TKO. Lab is here now to draw ordered labs and request that they call results.
[2019-12-15 11:39] LABS: HEMOGLOBIN 10.7 g/dl (12.5-16.0); MEAN CELL VOLUME 95 fl (80.0-100.0); MEAN CORPUSCULAR HEMOGLOBIN 32 pg (27.0-31.0); MEAN CORPUSCULAR HGB CONC 34 g/dl (33.0-37.0); MEAN PLATELET VOLUME 8.7 fl (7.4-10.4); PLATELET COUNT 126 K/mm3 (130-400); RED BLOOD COUNT 3.34 M/mm3 (4.10-5.30); REDCELL DISTRIBUTION WIDTH-CV 14.6 % (11.5-14.5)
--- NOTE | 2019-12-15 11:40 | NUR ---
Zofran given IVSP with explanation to pt. Hydralozine has been given. Waiting on labwork to be reported
[2019-12-15 11:43] LABS: HEMATOCRIT 31.7 % (37.0-47.0)
--- NOTE | 2019-12-15 11:56 | NUR ---
Lab reported and called to Dr Johnson. Proceed with chemotherapy order recieved. BP recheck 168/80. Waiting for chemotherapy to be prepared in pharmacy, they are aware.
[2019-12-15 12:22] LABS: THYROID STIMULATING HORMONE 3.59 uIU/mL (0.465-4.680)
--- NOTE | 2019-12-15 12:43 | NUR ---
Latest bp was 162/80. Pt tolerating chemotherapy infusion well. Chemotherapy precautions are in place and being followed. Cyclophosphamide was verified correct with Margarita Mora RN prior to start by comparing printed order with printed label. Pt is relaxing as infusion continues.
[2019-12-15 12:59] LABS: BAND 14 % (0-10); LYMPHOCYTE 7 % (20.0-51.0); METAMYELOCYTE 5 % (0-0); MYELOCYTE 1 % (0-0); NEUTROPHILS 70 % (42.0-75.2); PLATELET ESTIMATE DECREASED (NORMAL)
--- NOTE | 2019-12-15 13:02 | NUR ---
Pt has been up to the bathroom to void 3 x since arrival. She is resting between checks and tolerating chemotherapy well.
--- NOTE | 2019-12-15 13:45 | NUR ---
Cyclophosphamide infusion complete at 1320. Line flushed with NS and INT dc'd with pressure to the site until bleeding stopped. Susana and arlene applied. Reviewed with pt and with her daughter the importance of following chemotherapy precautions for the next 5 days and then those precautions are over. Advised that her labs were reviewed and both Magnesium and TSH fell within normal ranges. Again reinforced importance of drinking fluids through the day today to help flush the chemotherapy out of her body. Daughter Ligia took her down to the patient entrance to where her son was waiting for her to go home. Pt in stable condition. Last BP 158/80, P 64, resp 14.
[2019-12-15 13:49] VITALS: BP 158/80; PULSE 64
[2020-01-13 11:04] LABS: MEAN CELL VOLUME 101 fl (80.0-100.0); MEAN CORPUSCULAR HGB CONC 33 g/dl (33.0-37.0); MEAN PLATELET VOLUME 9.3 fl (7.4-10.4); PLATELET COUNT 114 K/mm3 (130-400); RED BLOOD COUNT 2.68 M/mm3 (4.10-5.30); REDCELL DISTRIBUTION WIDTH-CV 14.6 % (11.5-14.5)
--- NOTE | 2020-01-13 11:08 | NUR ---
Pt presented from admissions at 1025 for 4th infusion of her cytoxan. She is alone. She denies having issues from previous infusion. Medications were verified with her son Emmanuel by phone--see reconciliation. INT placed by Conchita MOHAN in rt lower forearm and I started IV infusion at 250ml/hr. See flow sheet for vital signs. Consent for today was signed.
[2020-01-13 11:10] LABS: HEMATOCRIT 27.1 % (37.0-47.0); MEAN CORPUSCULAR HEMOGLOBIN 34 pg (27.0-31.0)
[2020-01-13 11:11] VITALS: BP 162/93; PULSE 72; TEMP 99
[2020-01-13] MEDS ORDERED: ZESTRIL 20MG TA20 MG PO (11:19)
[2020-01-13] MEDS ORDERED: RAYOS5 MG PO (11:22)
[2020-01-13] MEDS ORDERED: DEMADEX10 MG PO (11:25)
[2020-01-13] MEDS ORDERED: ZYLOPRIM 100MG100 MG PO (11:27)
[2020-01-13] MEDS ORDERED: K-TAB20 PO (11:28)
[2020-01-13] MEDS ORDERED: SODIUM BICARBO650 MG PO (11:31)
--- NOTE | 2020-01-13 12:08 | NUR ---
CBC recieved and reviewed with Dr Johnson, who is on unit. Ok to proceed per Dr Johnson. Verified correct with Conchita Victoria RN by comoparing printed orders with printed label. Infusion started [id number] to infuse over 1 hour. Pt has been up once, prior to starting cyclophosphamide to void large amount. Po fluids at bedside, pt watching TV.Recheck at 5 minutes and pt is tolerating infusion well. Site remains WNL.
--- NOTE | 2020-01-13 12:26 | NUR ---
Pt is sleeping at this check and cyclophosphamide is infusing well.
[2020-01-13 12:35] LABS: BAND 2 % (0-10); LYMPHOCYTE 9 % (20.0-51.0); METAMYELOCYTE 2 % (0-0); MYELOCYTE 2 % (0-0); NEUTROPHILS 82 % (42.0-75.2)
[2020-01-13 12:36] LABS: ANISOCYTOSIS 2+; PLATELET ESTIMATE DECREASED (NORMAL)
[2020-01-13 12:37] LABS: POLYCHROMASIA 1+
[2020-01-13 13:27] VITALS: BP 142/72; PULSE 72; TEMP 98.2
--- NOTE | 2020-01-13 13:37 | NUR ---
Cyclophophamide infusion completed at 1310, Line flushed with NS and site dc'd all following chemotherapy precaution. Pt assisted to bathroom and voided large amount. See flowsheet for vital signs. Pt called her son for ride home and I escorted her down to pt admissions door for continuous pickling line pickler. She was given home chemotherapy precautions instruction sheet and she verbalized understanding.
[2020-02-25] MEDS ORDERED: ZOVIRAX 200MG200 MG PO (11:18)
== END 2020-03-14 | disposition still patient (30) ==
LOC: EUO
PROVIDERS: Internal Medicine Nephrology
DX: E11.22 Type 2 diabetes mellitus with diabetic chronic kidney disease (principal); D63.1 Anemia in chronic kidney disease; N18.9 Chronic kidney disease, unspecified; M31.7 Microscopic polyangiitis; N17.8 Other acute kidney failure
CPT/HCPCS: J2405; J7040; J7050; J9070

== ENCOUNTER → 2019-12-30 | Outpatient (CLI) | payer MEDICARE, OTHER | LOC: COL.RAD 07:00 | DX: R22.1 Localized swelling, mass and lump, neck (principal) ==

== ENCOUNTER → 2022-12-05 | Outpatient (CLI) | payer MEDICARE, OTHER ==
[~2022-12-05] MED LIST changes: +DEMADEX10 MG PO; +K-TAB20 PO; +RAYOS5 MG PO; +SODIUM BICARBO650 MG PO; +ZESTRIL 20MG TA20 MG PO; +ZOVIRAX 200MG200 MG PO; +ZYLOPRIM 100MG100 MG PO
== END ==
LOC: MC.RAD 07:40
DX: R92.8 Other abnormal and inconclusive findings on diagnostic imaging of breast (principal)

== ENCOUNTER → 2023-06-05 | Outpatient (CLI) | payer MEDICARE, OTHER | LOC: MC.RAD 08:30 → COL.RAD 08:30 → MC.RAD 08:31 | DX: N60.12 Diffuse cystic mastopathy of left breast (principal) ==